=== PATIENT | male | born 1950 | race American Indian/Alaskan Native ===

== ENCOUNTER → 2018-01-19 13:24 | Outpatient (CLI) | payer MEDICARE, OTHER, SELFPAY ==
--- NOTE | 2018-01-19 | DI.RAD.S_ITS ---
PROCEDURE: XR CHEST 2V INDICATIONS: SOB, EDEMA TECHNIQUE: 2 views of the chest were acquired. COMPARISON: [facility], CR, XR CHEST 2 VIEWS, 09/02/2017, 6:46. FINDINGS: Surgical changes and devices: Dual lead cardiac pacemaker. Median sternotomy. Lungs and pleura: No pleural effusions or pneumothorax. Bibasilar atelectasis, unchanged. No focal infiltrates. Mediastinum: Mediastinal contours are normal. Heart size is normal. Bones and chest wall: No suspicious bony abnormalities. Soft tissues appear unremarkable. IMPRESSION: No acute cardiopulmonary abnormality. Mild bibasilar atelectasis. Postoperative changes. Dictated by: Suleman Thayer M.D. on 01/19/2018 at 14:39 Approved by: Suleman Thayer M.D. on 01/19/2018 at 14:41
[2018-01-19 15:16] LABS: B Type Natriuretic Peptide 70.8 (<100)
[2018-01-19 15:28] LABS: BUN Creatinine Ratio 13.3 (6-22); Blood Urea Nitrogen 16 mg/dL (9-20); Calcium 8.8 mg/dL (8.4-10.2); Carbon Dioxide 27 mmol/L (22-32); Chloride 104 mmol/L (98-107); Estimated Glomerular Filt Rate > 60.0 mL/min (>60); Glucose 88 mg/dL (80-110); HEMOLYSIS < 15 (0-50); Potassium 4.8 mmol/L (3.4-5.1); Sodium 142 mmol/L (137-145)
== END ==
PROVIDERS: Family Provider Family Medicine; PCP Family Medicine; Visit Provider Family Medicine
DX: R06.02 Shortness of breath (principal); J98.11 Atelectasis; R60.9 Edema, unspecified
CPT/HCPCS: 36415; 71046; 80048; 83880

== ENCOUNTER → 2018-04-17 09:58 | Outpatient (CLI) | payer MEDICARE, OTHER, SELFPAY ==
--- NOTE | 2018-04-17 | DI.RAD.S_ITS ---
PROCEDURE: XR HIP W PEL IF DONE RT 2V INDICATIONS: RIGHT HIP PAIN TECHNIQUE: AP pelvis with lateral view(s) of the right hip(s). COMPARISON: None. FINDINGS: Bones: No fractures or dislocations. Pelvic ring appears intact. No suspicious bony lesions. Lower lumbar discogenic changes. Mild/moderate intra-and degeneration. Mild left hip degeneration. Soft tissues: The visualized bowel gas pattern is normal. No suspicious soft tissue calcifications. IMPRESSION: Bilateral, right greater than left, hip joint degeneration. Dictated by: Antwan Garcia M.D. on 04/17/2018 at 15:45 Approved by: Antwan Garcia M.D. on 04/17/2018 at 15:47
== END ==
PROVIDERS: Family Provider Family Medicine; PCP Family Medicine; Visit Provider Physician Assistant
DX: M25.551 Pain in right hip (principal); M16.0 Bilateral primary osteoarthritis of hip
CPT/HCPCS: 73502

== ENCOUNTER → 2018-10-09 13:01 | Outpatient (REF) | payer MEDICARE, OTHER, SELFPAY ==
[2018-10-09 13:08] LABS: Hematocrit 48.5 % (41-53); Mean Corpuscular Hemoglobin 28.8 PG (26-34); Mean Corpuscular Volume 87.2 fL (80-100); Platelet Count 196 X10^3/uL (150-400); Red Blood Cell Count 5.56 X10^6/uL (4.5-5.9); Red Cell Distribution Width 15.8 % (11.6-14.8); White Blood Cell Count 8.5 X10^3/uL (4.5-11.0)
[2018-10-09 13:22] LABS: BUN Creatinine Ratio 11.5 (6-22); Blood Urea Nitrogen 15 mg/dL (9-20); Calcium 8.8 mg/dL (8.4-10.2); Carbon Dioxide 30 mmol/L (22-32); Chloride 102 mmol/L (98-107); Estimated Glomerular Filt Rate 54.6 mL/min (>60); Glucose 111 mg/dL (80-110); HEMOLYSIS < 15 (0-50); Potassium 4.8 mmol/L (3.4-5.1); Sodium 141 mmol/L (137-145)
[2018-10-09 13:31] LABS: B Type Natriuretic Peptide 144 (<100)
[2018-10-09 13:54] LABS: Thyroid Stimulating Hormone 1.98 uIU/mL (0.47-4.68)
== END ==
LOC: LAB 13:01
PROVIDERS: Family Provider Family Medicine; PCP Family Medicine; Visit Provider Family Medicine
DX: I10 Essential (primary) hypertension (principal); I48.91 Unspecified atrial fibrillation; Z86.79 Personal history of other diseases of the circulatory system
CPT/HCPCS: 80048; 83880; 84443; 85027

== ENCOUNTER → 2018-10-26 08:59 | Outpatient (CLI) | payer MEDICARE, OTHER, SELFPAY ==
--- NOTE | 2018-10-26 | DI.ECHO.S_ITS ---
[facility] +---------+ [facility] +---------+ : : [address] [place] : : : : [id number] : : : : Phone: [phone]+ Echocardiogram Report + + :Name: BYRON GREGG Study Date: 10/26/2018 Height: 70 in : :[facility] Exam Location: IS Weight: 324 lb : : Gender: Male BSA: 2.6 m2 : :: 1950 Age: 68 yrs BP: 108/80 mmHg: :Reason For Study: Edema/ SOB : :Ordering Physician: Gretchen : :Johny Performed By: Noemy Page : + + Interpretation Summary The study quality was technically difficult. A contrast injection of Definity was performed to improve assessment of LV function. The ejection fraction is estimated to be 60-65%. There are no obvious focal wall motion abnormalities noted but poor endocardial definition reduces the sensitivity for the detection of such. The aortic valve is not well visualized. There is a bioprosthetic aortic valve. The gradients through the prosthetic aortic valve are within the normal range for this type of valve. Previously reported chordal elongation is not appreciated on this study. Procedure: A two-dimensional transthoracic echocardiogram with color flow and Doppler was performed. The study quality was technically difficult. Comparison is made with the echocardiogram of 04/11/2017. A contrast injection of Definity was performed to improve assessment of LV function. The heart rate ranged between 59-64 bpm during the study. Left Ventricle: The left ventricle is grossly normal size. There is normal left ventricular wall thickness. The ejection fraction is estimated to be 60- 65%. There are no obvious focal wall motion abnormalities noted but poor endocardial definition reduces the sensitivity for the detection of such. Diastolic parameters suggest a relaxation abnormality of the left ventricle, consistent with probable normal filling pressures. Right Ventricle: The right ventricle is grossly normal size. Right ventricular systolic function is at the lower limits of normal. Atria: Both atria are severely dilated. There is no Doppler evidence for an interatrial shunt. Mitral Valve: The mitral valve is grossly normal. There is trace mitral regurgitation. Aortic Valve: The aortic valve is not well visualized. There is a bioprosthetic aortic valve. The gradients through the prosthetic aortic valve are within the normal range for this type of valve. The prosthetic aortic valve is well-seated. Tricuspid Valve: The tricuspid valve is not well visualized, but is grossly normal. There is trace tricuspid regurgitation. Pulmonary artery pressures cannot be estimated because of the lack of a measurable TR jet velocity. Pulmonic Valve: The pulmonic valve is not well visualized. There is mild pulmonic regurgitation. Great Vessels: The aortic root is normal size. The ascending aorta could not be visualized. The pulmonary is not well visualized. The inferior vena cava was not visualized. Pericardium/ Pleura There is no pericardial effusion. There is no pleural effusion. MMode/2D Measurements & Calculations LVIDd: 5.3 cm LVOT diam: 2.6 cm LVIDs: 4.4 cm Ao root diam: 3.8 cm FS: 17.1 % IVSd: 0.97 cm LVPWd: 0.85 cm LV allen. diameter/BSA (cm/m^2): 2.1 LV sys. diameter/BSA (cm/m^2): 1.7 LA A2 area: 35.8 cm2 RA long axis: 6.7 cm LA A4 area: 27.7 cm2 RA area: 32.1 cm2 LA length (vol): 6.5 cm RA vol: 130.5 ml LA vol: 129.5 ml RA : 50.9 ml/m2 LA vol index: 50.5 ml/m2 RVD1 (basal): 4.6 cm Doppler Measurements & Calculations Ao V2 max: 229.9 cm/sec LVOT Max Tuan: 86.3 cm/sec Ao V2 mean: 158.4 cm/sec LV V1 max P.0 mmHg Ao max P.1 mmHg LV V1 VTI: 18.2 cm Ao mean P.5 mmHg LEONARDO(I,D): 2.1 cm2 Ao V2 VTI: 46.5 cm LEONARDO(V,D): 2.0 cm2 sev ratio: 0.39 LEONARDO indexed to BSA (cm^2/m^2): 0.83 MV E max tuan: 58.0 cm/sec PA V2 max: 60.5 cm/sec MV A max tuan: 97.1 cm/sec PA V2 mean: 39.7 cm/sec MV E/A: 0.60 PA mean P.73 mmHg MV dec time: 0.28 sec PA Accel Time: 0.03 sec MV P1/2t: 84.3 msec MV P1/2t max tuan: 57.4 cm/sec SV(LVOT): 98.7 ml MVA(P1/2t): 2.6 cm2 Reading Physician:[id number]
== END ==
PROVIDERS: PCP Family Medicine; Visit Provider Family Medicine
DX: I37.1 Nonrheumatic pulmonary valve insufficiency (principal); R06.02 Shortness of breath; R60.9 Edema, unspecified; R06.01 Orthopnea; Z95.2 Presence of prosthetic heart valve
CPT/HCPCS: 93306; Q9957

== ENCOUNTER → 2019-07-08 11:58 | Outpatient (CLI) | payer MEDICARE, OTHER, SELFPAY ==
--- NOTE | 2019-07-08 | DI.CT.S_ITS ---
PROCEDURE: CT LUMBAR SPINE WO CON INDICATIONS: lumbar radiculopathy TECHNIQUE: Noncontrast 3 mm thick sections acquired from the T12 level to the sacrum. Sagittal and coronal reformats were constructed. Additional oblique coronal reformatted images were performed through the sacrum. For radiation dose reduction, the following was used: automated exposure control. COMPARISON: [facility], MR, L-SPINE WITHOUT CONTRAST, 10/24/2008, 19:44. [facility], CR, XR HIP W PEL IF DONE RT 2V, 04/17/2018, 10:29. [facility], CR, L-SPINE 2-3 VIEWS, 04/30/2016, 12:12. [facility], RG, MRI BRAIN (IAC) W/WO CONTRAST, 02/07/2006, 14:34. FINDINGS: Image quality: Excellent. Bones: No acute vertebral body compression fractures. No suspicious lytic or blastic bony lesions. Central spinal caliber is of normal overall caliber. No pars defects. Mild levoconvex scoliotic curvature is noted. Minimal retrolisthesis is seen at L4-L5 and L5-S1. T12-L1: No significant abnormality is seen. L1-L2: Level within normal limits. L2-L3: The disc height is well preserved. Mild to moderate disc bulge is seen. There is mild bilateral neural foraminal narrowing seen. At least mild central canal narrowing is seen. These imaging findings have progressed compared to the prior study. L3-L4: The disc height is well-preserved. At least moderate disc bulge is seen. There is at least moderate bilateral neural foraminal narrowing seen. Moderate central canal narrowing is seen. These imaging findings have progressed compared to the prior study. L4-L5: Moderate loss of disc height is seen. Vacuum disc phenomenon is seen at this level. Moderate disc bulge is seen, which is eccentric to the left. There is moderate to severe left-sided and at least moderate right-sided neural foraminal narrowing seen. Mild central canal narrowing is seen. These degenerative changes are slightly more prominent than 2009. L5-S1: At least moderate loss of disc height is seen. Endplate irregularity and sclerosis can be seen. Vacuum disc phenomenon is seen at this level. At least moderate disc bulge is seen. There is moderate to severe bilateral neural foraminal narrowing seen. No significant central canal narrowing is seen. These imaging findings have progressed compared to the prior study. Soft tissues: No retroperitoneal masses or hematomas. Visualized aorta is normal in caliber. Pacer leads can be seen on the engineer internship images. Sternotomy wires are also seen. IMPRESSION: Lumbar spine degenerative changes are seen, which are worst inferiorly. The degenerative changes have progressed compared to 2008. Dictated by: Galileo Salinas M.D. on 07/08/2019 at 14:08 Approved by: Galileo Salians M.D. on 07/08/2019 at 14:13
== END ==
PROVIDERS: PCP Family Medicine; Visit Provider Family Medicine
DX: M47.26 Other spondylosis with radiculopathy, lumbar region (principal); M47.27 Other spondylosis with radiculopathy, lumbosacral region; Z95.0 Presence of cardiac pacemaker
CPT/HCPCS: 72131

== ENCOUNTER → 2019-11-22 12:31 | Outpatient (CLI) | payer MEDICARE, OTHER, SELFPAY ==
--- NOTE | 2019-11-22 | DI.US.S_ITS ---
PROCEDURE: US PERIPH VENOUS LOW EXTREM RT INDICATIONS: RIGHT LOWER EXTREMITY EDEMA TECHNIQUE: Real-time imaging, as well as color and pulse Doppler interrogation, were performed of the lower extremity deep veins from the inguinal ligament to the popliteal fossa. COMPARISON: None. FINDINGS: The common femoral, femoral and popliteal veins are normally compressible, and free of intraluminal thrombus. Color and pulse Doppler demonstrate normal phasic intraluminal flow. There is normal augmentation response to distal compression maneuver. Diffuse calf edema IMPRESSION: No evidence of deep venous thrombosis. Dictated by: Antwan Garcia M.D. on 11/22/2019 at 13:22 Approved by: Antwan Garcia M.D. on 11/22/2019 at 13:23
== END ==
PROVIDERS: PCP Family Medicine; Referring Provider Physician Assistant; Visit Provider Physician Assistant
DX: R60.0 Localized edema (principal)
CPT/HCPCS: 93971

== ENCOUNTER 2020-02-14 23:15 | Inpatient (IN) | payer MEDICARE, OTHER, SELFPAY ==
[2020-02-14 23:22] VITALS: BP 87/51; PULSE 112; RESP 30; TEMP 39.6; O2SAT 98; BMI 41.5
--- NOTE | 2020-02-14 23:23 | DI.RAD.S_ITS ---
PROCEDURE: XR CHEST 1V INDICATIONS: flu-like symptoms TECHNIQUE: One view of the chest was acquired. COMPARISON: [facility], CR, XR CHEST 2 VIEWS, 09/02/2017, 6:46. [facility], CR, XR CHEST 2V, 01/19/2018, 13:06. FINDINGS: Surgical changes and devices: Left chest wall cardiac pacer is stable. Median sternotomy wires are stable.. Lungs and pleura: Increased opacification noted in the left lung base which could represent atelectasis, aspiration or pneumonia. No pleural effusions or pneumothorax. Mediastinum: Mediastinal contours appear normal. Heart size is normal. Bones and chest wall: No suspicious bony lesions. Overlying soft tissues appear unremarkable. IMPRESSION: Left basilar atelectasis, aspiration or pneumonia. Dictated by: Candy Bang MD, PhD on 02/15/2020 at 8:33 Approved by: Candy Bang MD, PhD on 02/15/2020 at 8:34
--- NOTE | 2020-02-14 23:29 | ED.SEPSIS ---
HPI - Sepsis General Chief Complaint: Fever Mode of arrival: EMS Source: EMS Limitations: altered mental status Evaluation Sepsis Infection Criteria Present: Suspected New Infection Sepsis persistent hypotension: SBP < 90 mmHg Associated Symptoms: fever, cough, shortness of breath and weakness Narrative: 69-year-old male former smoker with cardiac history including coronary bypass graft surgery and pacemaker as well as COPD, morbid obesity and hypertension presents by EMS for evaluation upwards of 10 days of fever, weakness, shortness of breath and cough. He has a very poor historian and much of the story comes from the paramedics through the patient's . He denies any headache, runny nose or sore throat. He denies any chest pain. He has had no change in bowel habits such as constipation or diarrhea and denies any dysuria, frequency or urgency. He has been very weak and not doing much for least the past few days per the . There has been no obvious exposure to persons known to have COVID-19. states he has been taking his medications and has had no dietary change other than decreased appetite the past few days Review of Systems Constitutional Constitutional: Denies chills, Denies fatigue, Reports fever(s), Denies frequent falls, Denies lethargy and Reports weakness Eyes Eyes: Denies change in vision, Denies eye discharge, Denies irritation and Denies loss of vision ENT Ears, Nose, Mouth, and Throat: Denies change in voice, Denies dizziness, Denies neck pain, Denies sore throat and Denies throat swelling Cardiovascular Cardiovascular: Denies chest pain, Denies irregular heart rhythm, Denies lightheadedness, Denies palpitations, Reports dyspnea, Denies dyspnea on exertion and Denies orthopnea Respiratory Respiratory: Reports cough, Reports dyspnea, Denies dyspnea on exertion and Denies wheezing Gastrointestinal Gastrointestinal: Denies abdominal pain, Denies change in bowel habits, Denies diarrhea, Denies nausea and Denies vomiting Musculoskeletal Musculoskeletal: Denies neck pain and Denies numbness Integumentary/Breasts Skin/Breast: Denies pruritus, Denies erythema, Denies rash and Denies wounds Neurologic Neurologic: Denies behavioral changes, Reports confusion, Denies dizziness, Denies frequent falls, Denies loss of vision, Denies numbness and Reports weakness Psychiatric Psychiatric: Denies anxiety, Denies behavioral changes, Reports confusion, Denies depression, Denies homicidal ideation and Denies suicidal ideation Endocrine Endocrine: Denies fatigue, Denies flushing and Denies palpitations Hematologic/Lymphatic Hematologic/Lymphatic: Denies easy bruising Allergic/Immunologic Allergic/Immunologic: Denies urticaria, Denies throat swelling and Denies wheezing Patient History Social History Smoking Status: Former smoker Smoking Status: Former smoker alcohol intake frequency: 0-2 drinks per day Substance Use Type: does not use Exam Narrative Exam Narrative: GENERAL: [69] year old patient appears stated age. Morbid obesity, awake but confused and slow to respond HEAD: Atraumatic. Normocephalic. EYES: Pupils equal round and reactive. Extraocular motions intact. No scleral icterus. No injection or drainage. ENT: Nose without bleeding, purulent drainage. Throat without erythema, tonsillar hypertrophy or exudate. Airway patent. NECK: Trachea midline. Non tender CARDIOVASCULAR: Tachycardic but regular rhythm without murmurs, gallops, or rubs. RESPIRATORY: Clear to auscultation. Breath sounds equal bilaterally. No wheezes, rales, or rhonchi. No significant work of breathing GASTROINTESTINAL: Abdomen soft, non-tender, nondistended. Bowel sounds present in all 4 quadrants EXTREMITIES: No edema or joint tenderness. BACK: Nontender without deformity or crepitance. No flank tenderness. NEURO: No focal findings SKIN: No rash or erythema of visible areas Initial Vital Signs Initial Vital Signs: Vital Signs Temperature 103.3 F H 02/14/20 23:22 Pulse Rate 112 H 02/14/20 23:22 Respiratory Rate 30 H 02/14/20 23:22 Blood Pressure 87/51 L 02/14/20 23:22 Pulse Oximetry 98 02/14/20 23:22 Course Orders Ordered: ED Orders 02/14/20 23:20 COVID19 -ED/INPAT/OR/L&D Stat 02/14/20 23:22 EKG-12 Lead Stat High flow/High humidity nasal STAT 02/14/20 23:23 XR chest 1V Stat 02/14/20 23:30 Blood Culture Stat C-Reactive Protein Quant Stat Complete Blood Count AUTO DIFF Stat Comprehensive Metabolic Panel Stat D Dimer Stat Ferritin Stat Lactate (Lactic Acid) Stat Lactate Dehydrogenase Stat NT-proBNP (BNP-Adult 18+) Stat Procalcitonin Stat Troponin & CK Cardiac Panel Stat 02/14/20 23:40 Arterial Blood Gas Stat 02/15/20 00:03 CT angio chest PE protocol Stat 02/15/20 00:09 CT abdomen pelvis w con Stat 02/15/20 00:40 COVID19 -ED/INPAT/OR/L&D Stat Respiratory Panel (Film Array) Stat 02/15/20 00:50 Urinalysis and Microscopic Stat Urine Drug Screen, Rapid Stat 02/15/20 02:04 Creatinine & eGFR Stat Troponin I Stat Discontinued Medications Albuterol (Ventolin Hfa (Vent/Covid R/O)) 2 puff INH NOW ONE Stop: 02/15/20 01:15 Last Admin: 02/15/20 01:25 Dose: 2 puff Documented by: FLORAALLAmada Albuterol/Ipratropium (Duoneb) 3 ml INH NOW ONE Stop: 02/15/20 02:13 Last Admin: 02/15/20 02:17 Dose: 3 ml Documented by: BERE Diphenhydramine HCl (Benadryl) 25 mg IV NOW ONE Stop: 02/15/20 00:47 Last Admin: 02/15/20 00:54 Dose: 25 mg Documented by: OLGA LIDIA Levofloxacin (Levaquin) 750 mg in 150 mls @ 100 mls/hr IV NOW ONE Stop: 02/15/20 00:51 Last Infusion: 02/15/20 00:52 Dose: 100 mls/hr Documented by: OLGA LIDIA Admin: 02/14/20 23:30 Dose: 100 mls/hr Documented by: ABIODUN Lactated Ringer's (Lactated Ringers) 2,250.03 mls @ 750.01 mls/hr 30 ml/kg infuse over 3 hr (2250.03 ml) IV NOW ONE Stop: 02/15/20 02:21 Last Admin: 02/14/20 23:30 Dose: 750.01 mls/hr Documented by: ABIODUN Famotidine (Pepcid) 20 mg in 50 mls @ 200 mls/hr IV NOW ONE Stop: 02/15/20 01:00 Last Infusion: 02/15/20 01:19 Dose: 0 mls/hr Documented by: Admin: 02/15/20 00:54 Dose: 200 mls/hr Documented by: OLGA LIDIA Gentamicin Sulfate 270 mg/ (Sodium Chloride) 106.75 mls @ 106.75 mls/hr IV NOW ONE Stop: 02/15/20 01:34 Azithromycin 500 mg/ Dextrose 250 mls @ 250 mls/hr IV NOW ONE Stop: 02/15/20 01:36 Last Admin: 02/15/20 02:06 Dose: 250 mls/hr Documented by: OLGA LIDIA Methylprednisolone (Solu-Medrol 125 Mg Vial) 125 mg IV NOW ONE Stop: 02/15/20 00:47 Last Admin: 02/15/20 00:54 Dose: 125 mg Documented by: OLGA LIDIA Reevaluation(s) Reevaluation #1: patient making urine now, mentation improved. HR down to 98. Patient developed some redness and itching in his left arm after about half the volume of Levaquin had been given. IV stopped and solumedrol, benadryl, and pepcid ordered Time: 00:56 Reevaluation #2: patient repositioned, continuing to improve. BP now 94/60. Albuterol MDI w/spacer ordered. Urine still pending. Back up COVID PCR pending. Allergic symptoms from levaquin improved Time: 01:18 Reevaluation #3: patient makes some more urine. BP steady. Second COVID negative. Urine negative. Given allergies to levaquin and PCNs, Gent and Azithro ordered. Vital Signs Vital signs: Vital Signs - 8 hr 02/14/20 23:22 02/14/20 23:31 02/14/20 23:46 Temperature 103.3 F H Pulse Rate 112 H 109 H 108 H Respiratory Rate 30 H 38 H 34 H Blood Pressure 87/51 L 83/47 L Pulse Oximetry 98 98 97 02/14/20 23:50 02/15/20 00:00 02/15/20 00:30 Temperature Pulse Rate 109 H 102 H 109 H Respiratory Rate 30 H Blood Pressure Pulse Oximetry 98 95 96 02/15/20 00:45 02/15/20 00:50 02/15/20 01:00 Temperature Pulse Rate 103 H 104 H 96 H Respiratory Rate 39 H 33 H 35 H Blood Pressure 85/53 L 72/46 L 77/49 L Pulse Oximetry 93 94 98 02/15/20 01:06 02/15/20 01:10 02/15/20 01:20 Temperature Pulse Rate 94 H 95 H 93 H Respiratory Rate 35 H 43 H 39 H Blood Pressure 87/52 L 94/60 93/53 L Pulse Oximetry 98 99 99 02/15/20 01:26 02/15/20 01:30 02/15/20 01:31 Temperature Pulse Rate 92 H 93 H 93 H Respiratory Rate 28 H 26 H 41 H Blood Pressure 79/42 L Pulse Oximetry 96 97 96 02/15/20 01:40 02/15/20 01:54 02/15/20 02:00 Temperature Pulse Rate 91 H 92 H 93 H Respiratory Rate 36 H 26 H Blood Pressure 74/42 L 91/50 L Pulse Oximetry 95 97 97 02/15/20 02:01 02/15/20 02:11 02/15/20 02:18 Temperature Pulse Rate 91 H 89 Respiratory Rate 31 H 35 H Blood Pressure 137/56 L 138/66 Pulse Oximetry 90 L 92 96 02/15/20 02:21 02/15/20 02:30 02/15/20 02:41 Temperature 99.7 F H Pulse Rate 87 86 86 Respiratory Rate 33 H 34 H 35 H Blood Pressure 88/55 L 88/54 L 78/52 L Pulse Oximetry 91 95 96 02/15/20 02:42 Temperature Pulse Rate 86 Respiratory Rate 35 H Blood Pressure 85/56 L Pulse Oximetry 95 MDM - Sepsis Lab Data Result diagrams: 02/14/20 23:30 02/15/20 02:04 Labs: Lab Results 02/14/20 02/14/20 02/14/20 Range/Units 23:20 23:30 23:30 WBC (4.5-11.0) X10^3/uL RBC (4.5-5.9) X10^6/uL Hgb (13.5-17.5) g/dL Hct (41-53) % MCV (80-100) fL MCH (26-34) PG MCHC (30-36) % RDW (11.6-14.8) % Plt Count (150-400) X10^3/uL Neut % (Auto) (50-75) % Lymph % (Auto) (25-40) % [place] % (Auto) (3-14) % Eos % (Auto) (2-4) % Baso % (Auto) (0-2) % Neut # (Auto) (5526-8319) /uL Lymph # (Auto) (1629-5486) /uL [place] # (Auto) (0-900) /uL Eos # (Auto) (0-450) /uL Baso # (Auto) (0-100) /uL D-Dimer > 5250 H (<230) ng/mL ABG pH (7.35-7.45) ABG pCO2 (35-45) mmHg ABG pO2 (80-100) mmHg ABG HCO3 (22-26) mmol/L ABG Total CO2 (21-31) mmol/L ABG O2 Saturation (95-100) % ABG Base Excess (-2-2) mmol/L FiO2 Sodium (137-145) mmol/L Potassium (3.4-5.1) mmol/L Chloride (98-107) mmol/L Carbon Dioxide (22-32) mmol/L BUN (9-20) mg/dL Creatinine (0.66-1.25) mg/dL Estimated GFR (>60) mL/min BUN/Creatinine Ratio (6-22) Glucose (80-110) mg/dL Lactate (0.7-2.1) mmol/L Calcium (8.4-10.2) mg/dL Ferritin (18-464) ng/mL Total Bilirubin (0.2-1.3) mg/dL AST (17-59) IU/L ALT (<50) IU/L Alkaline Phosphatase (38-126) U/L Lactate Dehydrogenase (313-618) U/L Total Creatine Kinase (55-170) U/L CK-MB (CK-2) (<2.37) ng/mL CK-MB (CK-2) Rel Index (1.5-5.0) % Troponin I (0.01-0.034) ng/mL C-Reactive Protein (<1.0) mg/dL NT-Pro-B Natriuret Pep (<125) pg/mL Total Protein (6.3-8.2) g/dL Albumin (3.5-5.0) g/dL Globulin (1.7-4.1) g/dL Albumin/Globulin Ratio (1.0-2.8) Procalcitonin 0.23 (<0.5) ng/mL Urine Color Urine Appearance Urine pH (4.5-8.0) Ur Specific [place] (1.000-1.035) Urine Protein (Negative) Urine Glucose (UA) (Negative) g/dL Urine Ketones (NEGATIVE) Urine Occult Blood (Negative) Urine Nitrate (Negative) Urine Bilirubin (NEGATIVE) Urine Urobilinogen (0.2) E.U./dL Ur Leukocyte Esterase (NEGATIVE) Urine RBC (0-5/HPF) Urine WBC (0-5/HPF) Ur Squamous Epith Cells (0-5/HPF) Amorphous Sediment Urine Bacteria (None) Hyaline Casts (None) Granular Casts (None) Ur Culture Indicated? U Opiates 300ng/mL cut (Negative) Ur Oxycodone Screen (Negative) Urine Methadone Screen (Negative) Ur Barbiturates Screen (Negative) U Tricyclic Antidepress (Negative) Ur Phencyclidine Scrn (Negative) Ur Amphetamines Screen (Negative) U Methamphetamines Scrn (Negative) Ur MDMA Scrn (Ecstasy) (Negative) U Benzodiazepines Scrn (Negative) Urine Cocaine Screen (Negative) U Marijuana (THC) Screen (Negative) Chlamy pneumoniae PCR (Not Detect) Adenovirus (PCR) (Not Detect) B.parapertussis DNA PCR (Not Detect) Coronavirus OC43 (PCR) (Not Detect) Coronavirus HKU1 (PCR) (Not Detect) Coronavirus 229E (PCR) (Not Detect) COVID-19 PCR Negative (Negative) Coronavirus NL63 (PCR) (Not Detect) Human Metapneumovir PCR (Not Detect) Influenza Type A (PCR) (Not Detect) Influenza Type B (PCR) (Not Detect) M. pneumoniae (PCR) (Not Detect) Parainfluenza 1 (PCR) (Not Detect) Parainfluenza 2 (PCR) (Not Detect) Parainfluenza 3 (PCR) (Not Detect) Parainfluenza 4 (PCR) (Not Detect) RSV (PCR) (Not Detect) Entero/Rhino (PCR) (Not Detect) 02/14/20 02/14/20 02/14/20 Range/Units 23:30 23:30 23:30 WBC 14.8 H (4.5-11.0) X10^3/uL RBC 4.26 L (4.5-5.9) X10^6/uL Hgb 11.8 L (13.5-17.5) g/dL Hct 35.3 L (41-53) % MCV 82.9 (80-100) fL MCH 27.7 (26-34) PG MCHC 33.5 (30-36) % RDW 16.2 H (11.6-14.8) % Plt Count 184 (150-400) X10^3/uL Neut % (Auto) 88.0 H (50-75) % Lymph % (Auto) 6.5 L (25-40) % [place] % (Auto) 4.5 (3-14) % Eos % (Auto) 0.4 L (2-4) % Baso % (Auto) 0.6 (0-2) % Neut # (Auto) 75849 H (7642-3211) /uL Lymph # (Auto) 1000 L (9600-0659) /uL [place] # (Auto) 700 (0-900) /uL Eos # (Auto) 100 (0-450) /uL Baso # (Auto) 100 (0-100) /uL D-Dimer (<230) ng/mL ABG pH (7.35-7.45) ABG pCO2 (35-45) mmHg ABG pO2 (80-100) mmHg ABG HCO3 (22-26) mmol/L ABG Total CO2 (21-31) mmol/L ABG O2 Saturation (95-100) % ABG Base Excess (-2-2) mmol/L FiO2 Sodium 135 L (137-145) mmol/L Potassium 4.9 (3.4-5.1) mmol/L Chloride 105 (98-107) mmol/L Carbon Dioxide 24 (22-32) mmol/L BUN 42 H (9-20) mg/dL Creatinine 2.20 H (0.66-1.25) mg/dL Estimated GFR 29.7 L (>60) mL/min BUN/Creatinine Ratio 19.1 (6-22) Glucose 171 H (80-110) mg/dL Lactate 1.8 (0.7-2.1) mmol/L Calcium 8.2 L (8.4-10.2) mg/dL Ferritin 388 (18-464) ng/mL Total Bilirubin 0.5 (0.2-1.3) mg/dL AST 54 (17-59) IU/L ALT 39 (<50) IU/L Alkaline Phosphatase 103 (38-126) U/L Lactate Dehydrogenase 976 H (313-618) U/L Total Creatine Kinase 107 (55-170) U/L CK-MB (CK-2) 0.65 (<2.37) ng/mL CK-MB (CK-2) Rel Index 0.6 L (1.5-5.0) % Troponin I 0.063 H (0.01-0.034) ng/mL C-Reactive Protein 22.2 H (<1.0) mg/dL NT-Pro-B Natriuret Pep 2890 H (<125) pg/mL Total Protein 7.6 (6.3-8.2) g/dL Albumin 3.1 L (3.5-5.0) g/dL Globulin 4.5 H (1.7-4.1) g/dL Albumin/Globulin Ratio 0.7 L (1.0-2.8) Procalcitonin (<0.5) ng/mL Urine Color Urine Appearance Urine pH (4.5-8.0) Ur Specific [place] (1.000-1.035) Urine Protein (Negative) Urine Glucose (UA) (Negative) g/dL Urine Ketones (NEGATIVE) Urine Occult Blood (Negative) Urine Nitrate (Negative) Urine Bilirubin (NEGATIVE) Urine Urobilinogen (0.2) E.U./dL Ur Leukocyte Esterase (NEGATIVE) Urine RBC (0-5/HPF) Urine WBC (0-5/HPF) Ur Squamous Epith Cells (0-5/HPF) Amorphous Sediment Urine Bacteria (None) Hyaline Casts (None) Granular Casts (None) Ur Culture Indicated? U Opiates 300ng/mL cut (Negative) Ur Oxycodone Screen (Negative) Urine Methadone Screen (Negative) Ur Barbiturates Screen (Negative) U Tricyclic Antidepress (Negative) Ur Phencyclidine Scrn (Negative) Ur Amphetamines Screen (Negative) U Methamphetamines Scrn (Negative) Ur MDMA Scrn (Ecstasy) (Negative) U Benzodiazepines Scrn (Negative) Urine Cocaine Screen (Negative) U Marijuana (THC) Screen (Negative) Chlamy pneumoniae PCR (Not Detect) Adenovirus (PCR) (Not Detect) B.parapertussis DNA PCR (Not Detect) Coronavirus OC43 (PCR) (Not Detect) Coronavirus HKU1 (PCR) (Not Detect) Coronavirus 229E (PCR) (Not Detect) COVID-19 PCR (Negative) Coronavirus NL63 (PCR) (Not Detect) Human Metapneumovir PCR (Not Detect) Influenza Type A (PCR) (Not Detect) Influenza Type B (PCR) (Not Detect) M. pneumoniae (PCR) (Not Detect) Parainfluenza 1 (PCR) (Not Detect) Parainfluenza 2 (PCR) (Not Detect) Parainfluenza 3 (PCR) (Not Detect) Parainfluenza 4 (PCR) (Not Detect) RSV (PCR) (Not Detect) Entero/Rhino (PCR) (Not Detect) 02/14/20 02/15/20 02/15/20 Range/Units 23:40 00:40 00:40 WBC (4.5-11.0) X10^3/uL RBC (4.5-5.9) X10^6/uL Hgb (13.5-17.5) g/dL Hct (41-53) % MCV (80-100) fL MCH (26-34) PG MCHC (30-36) % RDW (11.6-14.8) % Plt Count (150-400) X10^3/uL Neut % (Auto) (50-75) % Lymph % (Auto) (25-40) % [place] % (Auto) (3-14) % Eos % (Auto) (2-4) % Baso % (Auto) (0-2) % Neut # (Auto) (4564-1674) /uL Lymph # (Auto) (5476-4250) /uL [place] # (Auto) (0-900) /uL Eos # (Auto) (0-450) /uL Baso # (Auto) (0-100) /uL D-Dimer (<230) ng/mL ABG pH 7.46 H (7.35-7.45) ABG pCO2 34.2 L (35-45) mmHg ABG pO2 86 (80-100) mmHg ABG HCO3 24 (22-26) mmol/L ABG Total CO2 25 (21-31) mmol/L ABG O2 Saturation 97 (95-100) % ABG Base Excess 0.0 (-2-2) mmol/L FiO2 0.34 Sodium (137-145) mmol/L Potassium (3.4-5.1) mmol/L Chloride (98-107) mmol/L Carbon Dioxide (22-32) mmol/L BUN (9-20) mg/dL Creatinine (0.66-1.25) mg/dL Estimated GFR (>60) mL/min BUN/Creatinine Ratio (6-22) Glucose (80-110) mg/dL Lactate (0.7-2.1) mmol/L Calcium (8.4-10.2) mg/dL Ferritin (18-464) ng/mL Total Bilirubin (0.2-1.3) mg/dL AST (17-59) IU/L ALT (<50) IU/L Alkaline Phosphatase (38-126) U/L Lactate Dehydrogenase (313-618) U/L Total Creatine Kinase (55-170) U/L CK-MB (CK-2) (<2.37) ng/mL CK-MB (CK-2) Rel Index (1.5-5.0) % Troponin I (0.01-0.034) ng/mL C-Reactive Protein (<1.0) mg/dL NT-Pro-B Natriuret Pep (<125) pg/mL Total Protein (6.3-8.2) g/dL Albumin (3.5-5.0) g/dL Globulin (1.7-4.1) g/dL Albumin/Globulin Ratio (1.0-2.8) Procalcitonin (<0.5) ng/mL Urine Color Urine Appearance Urine pH (4.5-8.0) Ur Specific [place] (1.000-1.035) Urine Protein (Negative) Urine Glucose (UA) (Negative) g/dL Urine Ketones (NEGATIVE) Urine Occult Blood (Negative) Urine Nitrate (Negative) Urine Bilirubin (NEGATIVE) Urine Urobilinogen (0.2) E.U./dL Ur Leukocyte Esterase (NEGATIVE) Urine RBC (0-5/HPF) Urine WBC (0-5/HPF) Ur Squamous Epith Cells (0-5/HPF) Amorphous Sediment Urine Bacteria (None) Hyaline Casts (None) Granular Casts (None) Ur Culture Indicated? U Opiates 300ng/mL cut (Negative) Ur Oxycodone Screen (Negative) Urine Methadone Screen (Negative) Ur Barbiturates Screen (Negative) U Tricyclic Antidepress (Negative) Ur Phencyclidine Scrn (Negative) Ur Amphetamines Screen (Negative) U Methamphetamines Scrn (Negative) Ur MDMA Scrn (Ecstasy) (Negative) U Benzodiazepines Scrn (Negative) Urine Cocaine Screen (Negative) U Marijuana (THC) Screen (Negative) Chlamy pneumoniae PCR Not detected (Not Detect) Adenovirus (PCR) Not detected (Not Detect) B.parapertussis DNA PCR Not detected (Not Detect) Coronavirus OC43 (PCR) Not detected (Not Detect) Coronavirus HKU1 (PCR) Not detected (Not Detect) Coronavirus 229E (PCR) Not detected (Not Detect) COVID-19 PCR Negative (Negative) Coronavirus NL63 (PCR) Not detected (Not Detect) Human Metapneumovir PCR Not detected (Not Detect) Influenza Type A (PCR) Not detected (Not Detect) Influenza Type B (PCR) Not detected (Not Detect) M. pneumoniae (PCR) Not detected (Not Detect) Parainfluenza 1 (PCR) Not detected (Not Detect) Parainfluenza 2 (PCR) Not detected (Not Detect) Parainfluenza 3 (PCR) Not detected (Not Detect) Parainfluenza 4 (PCR) Not detected (Not Detect) RSV (PCR) Not detected (Not Detect) Entero/Rhino (PCR) Not detected (Not Detect) 02/15/20 02/15/20 02/15/20 Range/Units 00:50 00:50 02:04 WBC (4.5-11.0) X10^3/uL RBC (4.5-5.9) X10^6/uL Hgb (13.5-17.5) g/dL Hct (41-53) % MCV (80-100) fL MCH (26-34) PG MCHC (30-36) % RDW (11.6-14.8) % Plt Count (150-400) X10^3/uL Neut % (Auto) (50-75) % Lymph % (Auto) (25-40) % [place] % (Auto) (3-14) % Eos % (Auto) (2-4) % Baso % (Auto) (0-2) % Neut # (Auto) (9087-6528) /uL Lymph # (Auto) (4675-5274) /uL [place] # (Auto) (0-900) /uL Eos # (Auto) (0-450) /uL Baso # (Auto) (0-100) /uL D-Dimer (<230) ng/mL ABG pH (7.35-7.45) ABG pCO2 (35-45) mmHg ABG pO2 (80-100) mmHg ABG HCO3 (22-26) mmol/L ABG Total CO2 (21-31) mmol/L ABG O2 Saturation (95-100) % ABG Base Excess (-2-2) mmol/L FiO2 Sodium (137-145) mmol/L Potassium (3.4-5.1) mmol/L Chloride (98-107) mmol/L Carbon Dioxide (22-32) mmol/L BUN (9-20) mg/dL Creatinine 1.98 H (0.66-1.25) mg/dL Estimated GFR 33.5 L (>60) mL/min BUN/Creatinine Ratio (6-22) Glucose (80-110) mg/dL Lactate (0.7-2.1) mmol/L Calcium (8.4-10.2) mg/dL Ferritin (18-464) ng/mL Total Bilirubin (0.2-1.3) mg/dL AST (17-59) IU/L ALT (<50) IU/L Alkaline Phosphatase (38-126) U/L Lactate Dehydrogenase (313-618) U/L Total Creatine Kinase (55-170) U/L CK-MB (CK-2) (<2.37) ng/mL CK-MB (CK-2) Rel Index (1.5-5.0) % Troponin I 0.053 H (0.01-0.034) ng/mL C-Reactive Protein (<1.0) mg/dL NT-Pro-B Natriuret Pep (<125) pg/mL Total Protein (6.3-8.2) g/dL Albumin (3.5-5.0) g/dL Globulin (1.7-4.1) g/dL Albumin/Globulin Ratio (1.0-2.8) Procalcitonin (<0.5) ng/mL Urine Color Yellow Urine Appearance Clear Urine pH 5.0 (4.5-8.0) Ur Specific [place] 1.015 (1.000-1.035) Urine Protein 1+ H (Negative) Urine Glucose (UA) Negative (Negative) g/dL Urine Ketones Negative (NEGATIVE) Urine Occult Blood 1+ H (Negative) Urine Nitrate Negative (Negative) Urine Bilirubin Negative (NEGATIVE) Urine Urobilinogen 0.2 (0.2) E.U./dL Ur Leukocyte Esterase Negative (NEGATIVE) Urine RBC 1-5/hpf (0-5/HPF) Urine WBC 0-1/hpf (0-5/HPF) Ur Squamous Epith Cells 0-1 /hpf (0-5/HPF) Amorphous Sediment 1+ Urine Bacteria Occasional (0-1) (None) Hyaline Casts 5-10/lpf (None) Granular Casts 1-5/lpf (None) Ur Culture Indicated? Cult not indicated U Opiates 300ng/mL cut Positive H (Negative) Ur Oxycodone Screen Negative (Negative) Urine Methadone Screen Negative (Negative) Ur Barbiturates Screen Negative (Negative) U Tricyclic Antidepress Negative (Negative) Ur Phencyclidine Scrn Negative (Negative) Ur Amphetamines Screen Negative (Negative) U Methamphetamines Scrn Negative (Negative) Ur MDMA Scrn (Ecstasy) Negative (Negative) U Benzodiazepines Scrn Negative (Negative) Urine Cocaine Screen Negative (Negative) U Marijuana (THC) Screen Negative (Negative) Chlamy pneumoniae PCR (Not Detect) Adenovirus (PCR) (Not Detect) B.parapertussis DNA PCR (Not Detect) Coronavirus OC43 (PCR) (Not Detect) Coronavirus HKU1 (PCR) (Not Detect) Coronavirus 229E (PCR) (Not Detect) COVID-19 PCR (Negative) Coronavirus NL63 (PCR) (Not Detect) Human Metapneumovir PCR (Not Detect) Influenza Type A (PCR) (Not Detect) Influenza Type B (PCR) (Not Detect) M. pneumoniae (PCR) (Not Detect) Parainfluenza 1 (PCR) (Not Detect) Parainfluenza 2 (PCR) (Not Detect) Parainfluenza 3 (PCR) (Not Detect) Parainfluenza 4 (PCR) (Not Detect) RSV (PCR) (Not Detect) Entero/Rhino (PCR) (Not Detect) Discharge Plan Departure Patient Disposition: Admitted As Inpatient Clinical Impression: Sepsis associated hypotension, Acute kidney injury Referrals: Gretchen Mcclain MD [Primary Care Provider] - Admit Date/Time: 02/15/20 02:56 Admit Provider: Sandra Garcia
[2020-02-14] MEDS: LACTATED RINGERS 750.01 ML IV (23:30)
[2020-02-14] MEDS: levoFLOXacin 750 MG/150 ML PIGGYBACK 100 MG IV (23:30)
[2020-02-14 23:31] VITALS: PULSE 109; RESP 38; O2SAT 98
[2020-02-14 23:46] VITALS: BP 83/47; PULSE 108; RESP 34; O2SAT 97
[2020-02-14 23:50] VITALS: PULSE 109; RESP 30; O2SAT 98
[2020-02-14 23:51] LABS: Add Manual Diff / Slide Review NO; Basophils Absolute Auto 100 /uL (0-100); Basophils Percent Auto 0.6 % (0-2); Eosinophils Absolute Auto 100 /uL (0-450); Eosinophils Percent Auto 0.4 % (2-4); Hematocrit 35.3 % (41-53); Hemoglobin 11.8 g/dL (13.5-17.5); Lymphocytes Absolute Auto 1000 /uL (1100-4500); Lymphocytes Percent Auto 6.5 % (25-40); Mean Corpuscular HGB Conc 33.5 % (30-36); Mean Corpuscular Hemoglobin 27.7 PG (26-34); Mean Corpuscular Volume 82.9 fL (80-100); Monocytes Absolute Auto 700 /uL (0-900); Monocytes Percent Auto 4.5 % (3-14); Neutrophils Absolute Auto 13000 /uL (1500-7000); Platelet Count 184 X10^3/uL (150-400); Red Blood Cell Count 4.26 X10^6/uL (4.5-5.9); Red Cell Distribution Width 16.2 % (11.6-14.8); White Blood Cell Count 14.8 X10^3/uL (4.5-11.0)
[2020-02-14 23:55] LABS: HCO3 ABG 24 mmol/L (22-26); Oxygen Saturation ABG 97 % (95-100); PCO2 ABG 34.2 mmHg (35-45); PO2 ABG 86 mmHg (80-100); TCO2 ABG 25 mmol/L (21-31); pH ABG 7.46 (7.35-7.45)
[2020-02-14 23:56] LABS: Lactate (Lactic Acid) 1.8 mmol/L (0.7-2.1)
[2020-02-14 23:57] LABS: COVID19 -Nasal RAPID Negative (Negative)
[2020-02-14 23:57] LABS: Fractionated Inspired Oxygen 0.34
[2020-02-14 23:58] LABS: Alanine Aminotransferase 39 IU/L (<50); Albumin 3.1 g/dL (3.5-5.0); Albumin Globulin Ratio 0.7 (1.0-2.8); Alkaline Phosphatase 103 U/L (38-126); Aspartate Aminotransferase 54 IU/L (17-59); BUN Creatinine Ratio 19.1 (6-22); Bilirubin Total 0.5 mg/dL (0.2-1.3); Blood Urea Nitrogen 42 mg/dL (9-20); Calcium 8.2 mg/dL (8.4-10.2); Carbon Dioxide 24 mmol/L (22-32); Chloride 105 mmol/L (98-107); Creatine Kinase 107 U/L (55-170); Estimated Glomerular Filt Rate 29.7 mL/min (>60); Globulin 4.5 g/dL (1.7-4.1); Glucose 171 mg/dL (80-110); HEMOLYSIS < 15 (0-50); Lactate Dehydrogenase 976 U/L (313-618); Potassium 4.9 mmol/L (3.4-5.1); Sodium 135 mmol/L (137-145); Total Protein 7.6 g/dL (6.3-8.2)
[2020-02-15] VITALS (45 sets, daily range): BP systolic 72–138; BP diastolic 42–71; PULSE 64–109; RESP 6–80; TEMP 35–37.6; O2SAT 90–99; BMI 42.4
[2020-02-15 00:03] LABS: D Dimer > 5250 ng/mL (<230)
--- NOTE | 2020-02-15 00:03 | DI.CT.S_ITS ---
PROCEDURE: CT ANGIO CHEST PE PROTOCOL INDICATIONS: Shortnessof breath, hypoxic, tachycardia, tachypnea TECHNIQUE: After the administration of intravenous contrast, 2 mm thick sections acquired from the pulmonary apices to the posterior costophrenic angles. 3-dimensional maximum intensity projection (MIP) coronal and sagittal reformats were then acquired through the thorax. For radiation dose reduction, the following was used: automated exposure control, adjustment of mA and/or kV according to patient size. COMPARISON: None. FINDINGS: Image quality: Suboptimal due to patient difficulty with breath hold instructions. Pulmonary arteries: Pulmonary arteries are normal in size, and demonstrate no intraluminal filling defects to suggest central pulmonary embolism. Scattered subsegmental atelectasis and/or scarring. No focal consolidation. No pleural effusions or pneumothorax. Central and peripheral airways are patent. Mild cardiomegaly. No mediastinal or hilar adenopathy. Ascending thoracic aorta measures 4.4 cm in diameter. Esophagus is normal in caliber, without hiatal hernia. Bones and chest wall: No suspicious bony lesions. Ribs and thoracic spine appear intact throughout. Thyroid gland unremarkable . No axillary or supraclavicular adenopathy. Abdomen: Visualized upper abdominal solid organs appear normal in the early arterial phase of enhancement. IMPRESSION: No evidence of pulmonary embolism. No aortic dissection identified. Motion degraded examination. Findings concordant with the preliminary study interpretation provided at the time of the exam. Dictated by: Antwan Garcia M.D. on 02/15/2020 at 8:36 Approved by: Antwan Garcia M.D. on 02/15/2020 at 8:47
[2020-02-15 00:07] LABS: NT-proBNP (BNP-Adult 18+) 2890 pg/mL (<125); Troponin I 0.063 ng/mL (0.01-0.034)
[2020-02-15 00:09] LABS: C-Reactive Protein Quant 22.2 mg/dL (<1.0); Procalcitonin 0.23 ng/mL (<0.5)
--- NOTE | 2020-02-15 00:09 | DI.CT.S_ITS ---
PROCEDURE: CT ABDOMEN PELVIS W CON INDICATIONS: sepsis, fatigue, renal failure, hypoxic TECHNIQUE: After the administration of intravenous contrast, 5 mm thick sections acquired from the diaphragm to the symphysis. 5 mm coronal and sagittal reformats were acquired. For radiation dose reduction, the following was used: automated exposure control, adjustment of mA and/or kV according to patient size. COMPARISON: [facility], CT, CT ANGIO CHEST ABDOMEN PELVIS, 08/18/2019, 21:38. [facility], CT, CT ANGIO CHEST PE PROTOCOL, 02/15/2020, 0:09. FINDINGS: Image quality: Motion degraded examination. ABDOMEN: Scattered subsegmental atelectasis and/or scarring. No focal consolidation. Heart size is normal. Subcentimeter hepatic foci are statistically cysts or hemangiomas, although technically too small to characterize accurately and therefore nonspecific. Gallbladder contains tiny gallstones without other CT evidence of acute cholecystitis. . Biliary system is non dilated. Pancreas enhances normally. Peripheral hypodensity present in the posterior margin of the spleen measuring approximately 2-3 cm possibly acute infarct, for example image /. No adrenal nodules. Kidneys demonstrate normal size and enhancement, without hydronephrosis. Peritoneum and bowel: Bowel loops demonstrate normal wall thickness and caliber. No free fluid or air. Colonic diverticulosis is seen without evidence of acute complication. Nodes and vessels: No retroperitoneal or mesenteric adenopathy by size criteria. Aorta and inferior vena cava are normal in size. Miscellaneous: No ventral hernias. PELVIS: Genitourinary: Bladder wall thickness is normal. Miscellaneous: No inguinal hernias or adenopathy. Bones: No suspicious bony lesions. No vertebral body compression fractures. IMPRESSION: Indeterminate hypodense region in the posterior spleen possibly acute infarct. This could be further evaluated with follow-up ultrasound surveillance as clinically necessary. Elsewhere, no acute abnormality identified Findings concordant with the preliminary study interpretation provided at the time of the exam. Dictated by: Antwan Garcia M.D. on 02/15/2020 at 8:52 Approved by: Antwan Garcia M.D. on 02/15/2020 at 8:58
[2020-02-15 00:10] LABS: CKMB % Relative Index 0.6 % (1.5-5.0); Creatine Kinase MB 0.65 ng/mL (<2.37)
[2020-02-15 00:30] LABS: Ferritin 388 ng/mL (18-464)
[2020-02-15] MEDS: methylPREDNISolone 125 MG/2 ML VIAL IV (00:54)
[2020-02-15] MEDS: FAMOTIDINE 20 MG/50 ML PIGGYBACK 200 MG IV (00:54)
[2020-02-15] MEDS: diphenhydrAMINE 50 MG/ML VIAL 25 MG IV (00:54)
[2020-02-15 01:06] LABS: Appearance Urine UA CLEAR; Bilirubin Urine UA NEGATIVE (NEGATIVE); Color Urine UA YELLOW; Glucose Urine UA NEGATIVE (Negative); Ketones Urine UA NEGATIVE (NEGATIVE); Leukocyte Esterase Urine UA NEGATIVE (NEGATIVE); Nitrite Urine UA NEGATIVE (Negative); Occult Blood Urine UA 1+ (Negative); Protein Urine UA 1+ (Negative); Specific Gravity Urine UA 1.015 (1.000-1.035); Urobilinogen Urine UA 0.2 E.U./dL (0.2)
[2020-02-15 01:07] LABS: UR Morphine/Opiate cutoff 300 Positive (Negative); Ur Creatinine Normal (Normal); Ur Specific Gravity Normal (Normal); Urine Amphetamines Negative (Negative); Urine Barbiturates Negative (Negative); Urine Benzodiazepines Negative (Negative); Urine Cocaine Negative (Negative); Urine MDMA Negative (Negative); Urine Methadone Negative (Negative); Urine Methamphetamines Negative (Negative); Urine Oxycodone Negative (Negative); Urine Phencyclidine Negative (Negative); Urine Tetrahydrocannabinol Negative (Negative); Urine Tricyclic Antidepressant Negative (Negative); Urine pH Normal (Normal)
[2020-02-15 01:12] LABS: Amorphous Sediment Urine 1+; Bacteria Urine Occasional (0-1); Granular Casts Urine 1-5/LPF; Hyaline Casts Urine 5-10/LPF; RBC Urine 1-5/HPF (0-5/HPF); Squamous Epithelial Cell Urine 0-1 /HPF (0-5/HPF); WBC Urine 0-1/HPF (0-5/HPF)
[2020-02-15 01:13] LABS: Culture Indicated Urine Cult Not Indicated
[2020-02-15] MEDS: ALBUTEROL HFA 200 PUFF/18 GM INH (COVID POS/VENT PTS) INH (01:25)
--- NOTE | 2020-02-15 01:31 | PC.NURSE ---
Pt c/o burning to R forearm, proximal to IV site where levequin was infusing. Red blotches noted to forearm. Levaquin stopped, Dr Blancas notified, pt medicated per order with benedryl, solumederol, and famotidine.
[2020-02-15 01:47] LABS: COVID19 -Nasal RAPID Negative (Negative)
[2020-02-15] MEDS: AZITHROMYCIN 500 MG in DEXTROSE 5% IN WATER 250 ML IV (02:06)
[2020-02-15 02:10] LABS: Adenovirus Not Detected (Not Detect); Coronavirus 229E Not Detected (Not Detect); Coronavirus HKU1 Not Detected (Not Detect); Coronavirus NL 63 Not Detected (Not Detect); Coronavirus OC43 Not Detected (Not Detect); Human Metapneumovirus Not Detected (Not Detect)
[2020-02-15 02:11] LABS: Bordetella pertussis Not Detected (Not Detect); Chlamydophila pneumoniae Not Detected (Not Detect); Human Rhinovirus/Enterovirus Not Detected (Not Detect); Influenza A Not Detected (Not Detect); Influenza B Not Detected (Not Detect); Mycoplasma pneumoniae Not Detected (Not Detect); Parainfluenza Virus 1 Not Detected (Not Detect); Parainfluenza Virus 2 Not Detected (Not Detect); Parainfluenza Virus 3 Not Detected (Not Detect); Parainfluenza Virus 4 Not Detected (Not Detect); Respiratory Syncytial Virus Not Detected (Not Detect)
[2020-02-15] MEDS: ALBUTEROL/IPRATROPIUM 3 ML AMPUL INH (02:17)
[2020-02-15 02:27] LABS: Estimated Glomerular Filt Rate 33.5 mL/min (>60)
[2020-02-15 02:40] LABS: Troponin I 0.053 ng/mL (0.01-0.034)
[2020-02-15] MEDS: GENTAMICIN 270 MG in SODIUM CHLORIDE 0.9% 100 ML 106.75 ML IV (03:09)
--- NOTE | 2020-02-15 03:51 | DI.US.S_ITS ---
PROCEDURE: US RENAL COMPLETE INDICATIONS: TEENA OF UNKNOWN ETIOLOGY TECHNIQUE: Real-time scanning was performed of the kidneys and bladder, with image documentation. COMPARISON: [facility], CT, CT ABDOMEN PELVIS W CON, 02/15/2020, 0:09. FINDINGS: Kidneys: Kidneys are normal in size. Right kidney measures 11.5 cm long; left kidney measures 13.8 cm long. Right renal cortical thickness is 1.8 cm; left renal cortical thickness is 1.6 cm. Renal cortical echotexture is normal. No hydronephrosis or nephrolithiasis. No suspicious solid mass lesions. Bladder: Bladder is collapsed with a Ewldon catheter limiting evaluation. Ureteral jets are not visualized. Miscellaneous: No free pelvic fluid. IMPRESSION: No obstruction. No focal masses. Dictated by: Misti Michelle M.D. on 02/15/2020 at 9:39 Approved by: Misti Michelle M.D. on 02/15/2020 at 9:45
[2020-02-15 03:54] LABS: INR 2.8 (0.9-1.3); Prothrombin Time 31.4 SECONDS (10.1-12.7)
--- NOTE | 2020-02-15 03:55 | PM.HP.1 ---
History of Present Illness History of Present Illness Date Patient Seen: 02/15/20 Time Patient Seen: 03:00 Chief complaint: Fever/ shortness of breath/ low BP Narrative: Vipin Lockhart is a 69-year-old [place] male former smoker with acardiac history including arotic valve replacement X 2 surgery, pacemaker as well as COPD, morbid obesity and hypertension presents to the ED with an upwards of 10 days of fever, weakness, shortness of breath and cough. Per his , in the room stated he was not eating and was sleeping all the time. He is more awake now and stated he his bones hurt. He told the ED provider that he had not been urinating at all and his said he was disoriented. He denies any headache, runny nose or sore throat. He denies any chest pain. He has had no change in bowel habits such as constipation or diarrhea and denies any dysuria, frequency or urgency. He has been very weak and not doing much for least the past few days per the . states he has been taking his medications and has had no dietary change other than decreased appetite the past few days. Two weeks ago, they went to a family birthday event in [place] and the states they all wore masks and no one she was aware of, had COVID-19. 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 He states he takes warfarin, but skipped his dose last night. Neither his or he of them knows his dose. Per the external meds in this chart, he takes warfarin 6 mg daily. This was confirmed with the and patient later in my visit. The patient arrived in the ED with severe hypotension, barely speaking, febrile at 103 with an elevated respiratory rate. He was put on O2 nasal cannula, and given a total of 3 liters of LR boluses. Chest CTA was negative for a PE, with a finding of a dilated ascending aorta of 4.[address] of the abdomen pelvis negative for bowel obstruction or diverticulitis, but reported on an indeterminant hypodense area in the spleen could represent an acute infarct. EKG was abnormal indicating an atrial first degree block, though patient is paced. A multitude of his labs were grossly abnormal with a white count of 14.8 with a left shift and lymphopenia, anemic at 11.8/35.3, his INR is therapeutic at 2.8, he has an TEENA with an intial creatinine of 2.2 which improved to 1.98 (last normal in 2018) with fluid boluses and a GFR of 33.5, glucose of 171, lactate 1.8, calcium 8.2, normal ferritin at 388, LDH elevated at 976m, elevated troponin of 0.063 improved to 0.053 likely due to demand ischemia associated with the TEENA, a proBNP of 2890, albumin low at 3.1, probably reflecting his poor nutritional status. U/A was negative for a UTI, he was tested twice for COVID-19 and both results were negative. Patient History Medical History (Updated 02/15/20 @ 05:06 by FLORENCIO Lundberg) Anticoagulated on warfarin (Chronic) CAD (coronary artery disease) (Chronic) Diabetes type 2, uncontrolled (Acute) Essential hypertension (Chronic) Morbid obesity with BMI of 40.0-44.9, adult (Chronic) Surgical History Aortic valve replaced (Acute) History of knee replacement (Acute) Status cardiac pacemaker (Chronic) Family & Social History Family History Mother Breast cancer Parkinson disease Father Colon cancer Safety & Behavioral: Feels Safe in Current Yes Environment Tobacco & Substance use: Smoking Status Former smoker, quit 20 years ago alcohol intake frequency Former, quit 20 years ago Substance Use Type does not use Meds Home Medications and Allergies Home Medications Medication Instructions Recorded Confirmed Type ALBUTEROL SULFATE (Ventolin / 2 puff INH Q4HP #0 02/04/10 History Proventil) Diltiazem Hydrochloride (Diltiazem 180 mg PO Q DAY #0 02/04/10 History 24HR Cd) Diphenhydramine Hydrochloride 25 mg PO Q DAY #0 02/04/10 History (Benadryl) LISINOPRIL (Zestril / Prinivil) 20 mg PO Q DAY #0 02/04/10 History MULTIVITAMIN (Multivitamin 1 cap PO Q DAY #0 02/04/10 History -) [FiSH OIL] 1,000 mg Q DAY #0 02/04/10 History [PROVENTIL] 90 mcg INH BID #0 02/04/10 History Allergies Allergy/AdvReac Type Severity Reaction Status Date / Time levofloxacin [From Levaquin] Allergy Intermediate Hives Verified 02/15/20 01:30 penicillin G [PENICILLIN G] AdvReac Unknown HIVES Unverified 09/17/17 12:56 BEE VENOM Allergy Severe SEVERE Uncoded 09/17/17 12:56 SWELLING, HAS EPI PEN ALWAYS ON PERSON Review of Systems Review of Systems ROS: Yes All systems reviewed with the patient and are negative except as otherwise documented Exam Vital Signs (past 8 hours): - 02/14/20 23:22 02/14/20 23:31 02/14/20 23:46 Temperature 103.3 F H Pulse Rate 112 H 109 H 108 H Respiratory Rate 30 H 38 H 34 H Blood Pressure 87/51 L 83/47 L Pulse Oximetry 98 98 97 02/14/20 23:50 02/15/20 00:00 02/15/20 00:30 Temperature Pulse Rate 109 H 102 H 109 H Respiratory Rate 30 H Blood Pressure Pulse Oximetry 98 95 96 02/15/20 00:45 02/15/20 00:50 02/15/20 01:00 Temperature Pulse Rate 103 H 104 H 96 H Respiratory Rate 39 H 33 H 35 H Blood Pressure 85/53 L 72/46 L 77/49 L Pulse Oximetry 93 94 98 02/15/20 01:06 02/15/20 01:10 02/15/20 01:20 Temperature Pulse Rate 94 H 95 H 93 H Respiratory Rate 35 H 43 H 39 H Blood Pressure 87/52 L 94/60 93/53 L Pulse Oximetry 98 99 99 02/15/20 01:26 02/15/20 01:30 02/15/20 01:31 Temperature Pulse Rate 92 H 93 H 93 H Respiratory Rate 28 H 26 H 41 H Blood Pressure 79/42 L Pulse Oximetry 96 97 96 02/15/20 01:40 02/15/20 01:54 02/15/20 02:00 Temperature Pulse Rate 91 H 92 H 93 H Respiratory Rate 36 H 26 H Blood Pressure 74/42 L 91/50 L Pulse Oximetry 95 97 97 02/15/20 02:01 02/15/20 02:11 02/15/20 02:18 Temperature Pulse Rate 91 H 89 Respiratory Rate 31 H 35 H Blood Pressure 137/56 L 138/66 Pulse Oximetry 90 L 92 96 02/15/20 02:21 02/15/20 02:30 02/15/20 02:41 Temperature 99.7 F H Pulse Rate 87 86 86 Respiratory Rate 33 H 34 H 35 H Blood Pressure 88/55 L 88/54 L 78/52 L Pulse Oximetry 91 95 96 02/15/20 02:42 02/15/20 02:50 02/15/20 03:00 Temperature Pulse Rate 86 87 84 Respiratory Rate 35 H 34 H Blood Pressure 85/56 L 95/60 Pulse Oximetry 95 95 93 02/15/20 03:11 02/15/20 03:19 02/15/20 03:20 Temperature Pulse Rate 84 83 83 Respiratory Rate 32 H 36 H Blood Pressure 81/52 L Pulse Oximetry 94 95 95 02/15/20 03:23 02/15/20 03:30 02/15/20 03:41 Temperature Pulse Rate 85 81 81 Respiratory Rate 6 L Blood Pressure 102/65 92/60 86/62 L Pulse Oximetry 96 94 94 02/15/20 03:50 Temperature Pulse Rate 79 Respiratory Rate Blood Pressure 84/62 L Pulse Oximetry 94 Oxygen Delivery Method Nasal Cannula Oxygen Flow Rate 2 Narrative Exam Narrative: Alert, oriented, morbidly obese 69 y.o. [place] male, lethargic and mildly short of breath HEENT: normocephalic, atraumatic, conjunctiva clear, sclera non-icteric, oral mucosa pink and moist Neck: supple, full ROM, no JVD, trachea is midline Resp: Lungs CTA, mildly tachypneac CV: tachy, no murmur or rubs Abd: obese, non-tender, hypoactive BTs Skin: no lesions or rashes, dry and intact, some bruising on his legs bilaterally, no edema Neuro: Lethargic, but alert and oriented X 4 w/no focal deficits. Speech clear and coherent. Extremities: moves all 4 extremities, normally is ambulatory and apparently moved well when transferring to a medical bed, negative Giancarlo?s sign Psyche: normal mood and affect. Objective Labs Result Diagrams: 02/14/20 23:30 02/15/20 02:04 Labs: Laboratory Results - last 24 hr 02/14/20 02/14/20 02/14/20 23:20 23:30 23:30 WBC RBC Hgb Hct MCV MCH MCHC RDW Plt Count Neut % (Auto) Lymph % (Auto) [place] % (Auto) Eos % (Auto) Baso % (Auto) Neut # (Auto) Lymph # (Auto) [place] # (Auto) Eos # (Auto) Baso # (Auto) D-Dimer > 5250 H ABG pH ABG pCO2 ABG pO2 ABG HCO3 ABG Total CO2 ABG O2 Saturation ABG Base Excess FiO2 Sodium Potassium Chloride Carbon Dioxide BUN Creatinine Estimated GFR BUN/Creatinine Ratio Glucose Lactate Calcium Ferritin Total Bilirubin AST ALT Alkaline Phosphatase Lactate Dehydrogenase Total Creatine Kinase CK-MB (CK-2) CK-MB (CK-2) Rel Index Troponin I C-Reactive Protein NT-Pro-B Natriuret Pep Total Protein Albumin Globulin Albumin/Globulin Ratio Procalcitonin 0.23 Urine Color Urine Appearance Urine pH Ur Specific [place] Urine Protein Urine Glucose (UA) Urine Ketones Urine Occult Blood Urine Nitrate Urine Bilirubin Urine Urobilinogen Ur Leukocyte Esterase Urine RBC Urine WBC Ur Squamous Epith Cells Amorphous Sediment Urine Bacteria Hyaline Casts Granular Casts Ur Culture Indicated? U Opiates 300ng/mL cut Ur Oxycodone Screen Urine Methadone Screen Ur Barbiturates Screen U Tricyclic Antidepress Ur Phencyclidine Scrn Ur Amphetamines Screen U Methamphetamines Scrn Ur MDMA Scrn (Ecstasy) U Benzodiazepines Scrn Urine Cocaine Screen U Marijuana (THC) Screen Chlamy pneumoniae PCR Adenovirus (PCR) B.parapertussis DNA PCR Coronavirus OC43 (PCR) Coronavirus HKU1 (PCR) Coronavirus 229E (PCR) COVID-19 PCR Negative Coronavirus NL63 (PCR) Human Metapneumovir PCR Influenza Type A (PCR) Influenza Type B (PCR) M. pneumoniae (PCR) Parainfluenza 1 (PCR) Parainfluenza 2 (PCR) Parainfluenza 3 (PCR) Parainfluenza 4 (PCR) RSV (PCR) Entero/Rhino (PCR) 02/14/20 02/14/20 02/14/20 23:30 23:30 23:30 WBC 14.8 H RBC 4.26 L Hgb 11.8 L Hct 35.3 L MCV 82.9 MCH 27.7 MCHC 33.5 RDW 16.2 H Plt Count 184 Neut % (Auto) 88.0 H Lymph % (Auto) 6.5 L [place] % (Auto) 4.5 Eos % (Auto) 0.4 L Baso % (Auto) 0.6 Neut # (Auto) 36300 H Lymph # (Auto) [address] [place] # (Auto) 700 Eos # (Auto) 100 Baso # (Auto) 100 D-Dimer ABG pH ABG pCO2 ABG pO2 ABG HCO3 ABG Total CO2 ABG O2 Saturation ABG Base Excess FiO2 Sodium 135 L Potassium 4.9 Chloride 105 Carbon Dioxide 24 BUN 42 H Creatinine 2.20 H Estimated GFR 29.7 L BUN/Creatinine Ratio 19.1 Glucose 171 H Lactate 1.8 Calcium 8.2 L Ferritin 388 Total Bilirubin 0.5 AST 54 ALT 39 Alkaline Phosphatase 103 Lactate Dehydrogenase 976 H Total Creatine Kinase 107 CK-MB (CK-2) 0.65 CK-MB (CK-2) Rel Index 0.6 L Troponin I 0.063 H C-Reactive Protein 22.2 H NT-Pro-B Natriuret Pep 2890 H Total Protein 7.6 Albumin 3.1 L Globulin 4.5 H Albumin/Globulin Ratio 0.7 L Procalcitonin Urine Color Urine Appearance Urine pH Ur Specific [place] Urine Protein Urine Glucose (UA) Urine Ketones Urine Occult Blood Urine Nitrate Urine Bilirubin Urine Urobilinogen Ur Leukocyte Esterase Urine RBC Urine WBC Ur Squamous Epith Cells Amorphous Sediment Urine Bacteria Hyaline Casts Granular Casts Ur Culture Indicated? U Opiates 300ng/mL cut Ur Oxycodone Screen Urine Methadone Screen Ur Barbiturates Screen U Tricyclic Antidepress Ur Phencyclidine Scrn Ur Amphetamines Screen U Methamphetamines Scrn Ur MDMA Scrn (Ecstasy) U Benzodiazepines Scrn Urine Cocaine Screen U Marijuana (THC) Screen Chlamy pneumoniae PCR Adenovirus (PCR) B.parapertussis DNA PCR Coronavirus OC43 (PCR) Coronavirus HKU1 (PCR) Coronavirus 229E (PCR) COVID-19 PCR Coronavirus NL63 (PCR) Human Metapneumovir PCR Influenza Type A (PCR) Influenza Type B (PCR) M. pneumoniae (PCR) Parainfluenza 1 (PCR) Parainfluenza 2 (PCR) Parainfluenza 3 (PCR) Parainfluenza 4 (PCR) RSV (PCR) Entero/Rhino (PCR) 02/14/20 02/15/20 02/15/20 23:40 00:40 00:40 WBC RBC Hgb Hct MCV MCH MCHC RDW Plt Count Neut % (Auto) Lymph % (Auto) [place] % (Auto) Eos % (Auto) Baso % (Auto) Neut # (Auto) Lymph # (Auto) [place] # (Auto) Eos # (Auto) Baso # (Auto) D-Dimer ABG pH 7.46 H ABG pCO2 34.2 L ABG pO2 86 ABG HCO3 24 ABG Total CO2 25 ABG O2 Saturation 97 ABG Base Excess 0.0 FiO2 0.34 Sodium Potassium Chloride Carbon Dioxide BUN Creatinine Estimated GFR BUN/Creatinine Ratio Glucose Lactate Calcium Ferritin Total Bilirubin AST ALT Alkaline Phosphatase Lactate Dehydrogenase Total Creatine Kinase CK-MB (CK-2) CK-MB (CK-2) Rel Index Troponin I C-Reactive Protein NT-Pro-B Natriuret Pep Total Protein Albumin Globulin Albumin/Globulin Ratio Procalcitonin Urine Color Urine Appearance Urine pH Ur Specific [place] Urine Protein Urine Glucose (UA) Urine Ketones Urine Occult Blood Urine Nitrate Urine Bilirubin Urine Urobilinogen Ur Leukocyte Esterase Urine RBC Urine WBC Ur Squamous Epith Cells Amorphous Sediment Urine Bacteria Hyaline Casts Granular Casts Ur Culture Indicated? U Opiates 300ng/mL cut Ur Oxycodone Screen Urine Methadone Screen Ur Barbiturates Screen U Tricyclic Antidepress Ur Phencyclidine Scrn Ur Amphetamines Screen U Methamphetamines Scrn Ur MDMA Scrn (Ecstasy) U Benzodiazepines Scrn Urine Cocaine Screen U Marijuana (THC) Screen Chlamy pneumoniae PCR Not detected Adenovirus (PCR) Not detected B.parapertussis DNA PCR Not detected Coronavirus OC43 (PCR) Not detected Coronavirus HKU1 (PCR) Not detected Coronavirus 229E (PCR) Not detected COVID-19 PCR Negative Coronavirus NL63 (PCR) Not detected Human Metapneumovir PCR Not detected Influenza Type A (PCR) Not detected Influenza Type B (PCR) Not detected M. pneumoniae (PCR) Not detected Parainfluenza 1 (PCR) Not detected Parainfluenza 2 (PCR) Not detected Parainfluenza 3 (PCR) Not detected Parainfluenza 4 (PCR) Not detected RSV (PCR) Not detected Entero/Rhino (PCR) Not detected 02/15/20 02/15/20 02/15/20 00:50 00:50 02:04 WBC RBC Hgb Hct MCV MCH MCHC RDW Plt Count Neut % (Auto) Lymph % (Auto) [place] % (Auto) Eos % (Auto) Baso % (Auto) Neut # (Auto) Lymph # (Auto) [place] # (Auto) Eos # (Auto) Baso # (Auto) D-Dimer ABG pH ABG pCO2 ABG pO2 ABG HCO3 ABG Total CO2 ABG O2 Saturation ABG Base Excess FiO2 Sodium Potassium Chloride Carbon Dioxide BUN Creatinine 1.98 H Estimated GFR 33.5 L BUN/Creatinine Ratio Glucose Lactate Calcium Ferritin Total Bilirubin AST ALT Alkaline Phosphatase Lactate Dehydrogenase Total Creatine Kinase CK-MB (CK-2) CK-MB (CK-2) Rel Index Troponin I 0.053 H C-Reactive Protein NT-Pro-B Natriuret Pep Total Protein Albumin Globulin Albumin/Globulin Ratio Procalcitonin Urine Color Yellow Urine Appearance Clear Urine pH 5.0 Ur Specific [place] 1.015 Urine Protein 1+ H Urine Glucose (UA) Negative Urine Ketones Negative Urine Occult Blood 1+ H Urine Nitrate Negative Urine Bilirubin Negative Urine Urobilinogen 0.2 Ur Leukocyte Esterase Negative Urine RBC 1-5/hpf Urine WBC 0-1/hpf Ur Squamous Epith Cells 0-1 /hpf Amorphous Sediment 1+ Urine Bacteria Occasional (0-1) Hyaline Casts 5-10/lpf Granular Casts 1-5/lpf Ur Culture Indicated? Cult not indicated U Opiates 300ng/mL cut Positive H Ur Oxycodone Screen Negative Urine Methadone Screen Negative Ur Barbiturates Screen Negative U Tricyclic Antidepress Negative Ur Phencyclidine Scrn Negative Ur Amphetamines Screen Negative U Methamphetamines Scrn Negative Ur MDMA Scrn (Ecstasy) Negative U Benzodiazepines Scrn Negative Urine Cocaine Screen Negative U Marijuana (THC) Screen Negative Chlamy pneumoniae PCR Adenovirus (PCR) B.parapertussis DNA PCR Coronavirus OC43 (PCR) Coronavirus HKU1 (PCR) Coronavirus 229E (PCR) COVID-19 PCR Coronavirus NL63 (PCR) Human Metapneumovir PCR Influenza Type A (PCR) Influenza Type B (PCR) M. pneumoniae (PCR) Parainfluenza 1 (PCR) Parainfluenza 2 (PCR) Parainfluenza 3 (PCR) Parainfluenza 4 (PCR) RSV (PCR) Entero/Rhino (PCR) Assessment & Plan Assessment & Plan narrative: Vipin Lockhart will be admitted to the ICU for further workup of an acute kidney injury and sepsis. Sepsis of unknown origin, acute and present on admission -Patient on presentation to the ED was obtunded, febrile at 103, hypotensive, and tachycardic and has since improved prior to being transferred to the floor -Lactate was negative but will order a second one at 0700. -end organ damage of elevated troponin and pro-BNP in the setting of an acute kidney injury -He was fluid resuscitated with 3L lactated ringers and will continue with NS at 175 per hour -ED placed a koch and he put out what appeared to be 500 ml out after fluid resuscitation. Elevated troponin, likely in the setting of demand ischemia/type 2 GA -This has been trending down, but will repeat at 0700 -Patient normally takes lasix 40 mg, but will hold due to hypotension and need for emergent fluids Probably CHF exacerbation, likely acute, present on admission -proBNP of 2890 -Echocardiogram ordered -Diuresis not advised at this time due to his soft blood pressures Fever of unknown origin, acute and present on admission -Due to penicillin allergies he was administered IV gentimicin and IV azithromycin in the ED. They later found he had previously tolerated keflex, so he will be initiated on iv ceftriaxone 2 grams daily starting 02/15 and continue azithromycin -blood cultures are pending -repeat procalcitonin at 0700 -I have ordered COVID-19 antibodies igM and IgG Diabetes type 2, previosly diet controlled, now an A1c of 7.5, present on admission -presenting glucose was 171 -Patient was previously on anti-diabetic medications and diet, stated that he was okay -He is advised that he will be on insulin while he is here with a diabetic diet and we will do diabetic teaching Essential hypertension, currently hypotensive -Patient normally takes lisinopril 10 mg daily, will be held due to hypotension and impaired renal function -Patient normally takes metoprolol tartrate 75 mg po bid, will hold due to hypotension Hyperlipidemia, chronic -Patient normally takes rosuvastatin 20 mg po at bedtime and will resume after confirmed -Lipid panel ordered for 0700 Benign prostatic hypertrophy, chronic -Takes Tamsulosin 0.4 mg po at bedtime, will resume when confirmed VTE prophylaxis: Caprini risk score: 7, high risk Bilateral SCDs Heparin 5000 units bid ordered due to renal impairment Consults: none Requesing medical records from 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 FEN: IV NS at 175 ml/hour, carb controlled diet, CMP and magnesium in the am. Dispo: unknown at this time Code Status: Full code as discussed with patient and his , surrogate COVID-19 COVID-19 status: Negative Result date/Date tested (Pos, Neg/Pending): 02/15/20 (Tested twice today)
[2020-02-15 04:41] LABS: Hemoglobin A1C% w Est Avg Glu 7.5 % (4.0-6.0)
[2020-02-15] MEDS: CEFTRIAXONE 2 GM/50 ML FROZ.PIGGY IV (05:07)
[2020-02-15] MEDS: SODIUM CHLORIDE 0.9% 1,000 ML 175 ML IV ×3 (05:07→17:36)
--- NOTE | 2020-02-15 06:32 | PC.NURSE ---
Admit Note-Patient brought to Room 226 via stretcher, able to move over to bed with minimal assist, mild shortness of breath with exertions, RR 30s, SpO2 97% on 3L NC, LS CTA, diminished posterior. HR V-paced 80s, initial BP 120/61, then trends downward into 90s/50s MAP >60. Patient is oriented x3, can answer questions with assist from his at bedside. NS @ 175ml/hr, Rocephin started. Weldon patent with large clear UOP, see I/Os, vital trends, and assessment notes.
[2020-02-15 07:45] LABS: Add Manual Diff / Slide Review NO; Basophils Absolute Auto 0 /uL (0-100); Basophils Percent Auto 0.2 % (0-2); Eosinophils Absolute Auto 0 /uL (0-450); Hematocrit 34.5 % (41-53); Hemoglobin 11.3 g/dL (13.5-17.5); Lymphocytes Absolute Auto 600 /uL (1100-4500); Lymphocytes Percent Auto 4.8 % (25-40); Mean Corpuscular HGB Conc 32.8 % (30-36); Mean Corpuscular Hemoglobin 27.3 PG (26-34); Mean Corpuscular Volume 83.4 fL (80-100); Monocytes Absolute Auto 200 /uL (0-900); Monocytes Percent Auto 1.8 % (3-14); Neutrophils Absolute Auto 11500 /uL (1500-7000); Neutrophils Percent Auto 93.2 % (50-75); Platelet Count 164 X10^3/uL (150-400); Red Blood Cell Count 4.13 X10^6/uL (4.5-5.9); Red Cell Distribution Width 16.2 % (11.6-14.8); White Blood Cell Count 12.4 X10^3/uL (4.5-11.0)
[2020-02-15 07:46] LABS: INR 3.4 (0.9-1.3); Prothrombin Time 39.1 SECONDS (10.1-12.7)
[2020-02-15 07:51] LABS: Alanine Aminotransferase 33 IU/L (<50); Albumin 2.8 g/dL (3.5-5.0); Albumin Globulin Ratio 0.7 (1.0-2.8); Alkaline Phosphatase 85 U/L (38-126); Aspartate Aminotransferase 42 IU/L (17-59); BUN Creatinine Ratio 19.8 (6-22); Bilirubin Total 0.4 mg/dL (0.2-1.3); Blood Urea Nitrogen 34 mg/dL (9-20); Calcium 8.1 mg/dL (8.4-10.2); Carbon Dioxide 25 mmol/L (22-32); Chloride 106 mmol/L (98-107); Estimated Glomerular Filt Rate 39.4 mL/min (>60); Globulin 4.1 g/dL (1.7-4.1); Glucose 243 mg/dL (80-110); HEMOLYSIS < 15 (0-50); Magnesium 2.3 mg/dL (1.6-2.3); Potassium 5.2 mmol/L (3.4-5.1); Sodium 135 mmol/L (137-145); Total Protein 6.9 g/dL (6.3-8.2)
[2020-02-15 08:02] LABS: Troponin I 0.071 ng/mL (0.01-0.034)
[2020-02-15] MEDS: INSULIN ASPART 100 UNIT/ML INSULN PEN SUBCUT ×3 (09:07→17:00)
[2020-02-15] MEDS: PANTOPRAZOLE 40 MG VIAL IV (09:07)
[2020-02-15] MEDS: DOCUSATE 100 MG CAPSULE PO (09:08)
[2020-02-15] MEDS: HYDROCODONE/ACET 5/325 TABLET 1.5 TAB PO ×2 (09:10→17:04)
[2020-02-15 09:42] LABS: Cholesterol 124 mg/dL (140-199); HDL Cholesterol 19 mg/dL (40-60); LDL Cholesterol Calculated 76 mg/dL (<100); Triglycerides 145 mg/dL (35-150)
--- NOTE | 2020-02-15 11:03 | DI.ECHO.S_ITS ---
Echocardiogram Report + + :Name: BYRON GREGG Study Date: 02/15/2020 Height: 71 in : :Hospital Weight: 304 lb: : Gender: Male BSA: 2.5 m2 : :: 1950 Age: 69 yrs BP: 96/65 mmHg: :Reason For Study: CHF, AVR : :Ordering Physician: : :OMAR GILLESPIE Performed By: Falguni Lo : :Referring: KEVIN STEPHENS : + + Interpretation Summary There is mild concentric left ventricular hypertrophy. The ejection fraction is estimated to be 60-65%. There is a pacemaker lead in the right ventricle. The right atrium is borderline dilated. There is a bioprosthetic aortic valve. The peak aortic velocity is 3.5 m/sec. The aortic valve mean gradient is 29 mmHg. The velocity across the left ventricular outflow tract has increased as has the mean gradient. Overall the leaflets appear to show adequate mobility. Recommend repeat echo in 6 months Procedure: A two-dimensional transthoracic echocardiogram with color flow and Doppler was performed. The study quality was technically adequate. Comparison is made with the echocardiogram of 10/26/2018. The patient has a paced rhythm. Left Ventricle: The left ventricle is normal in size. There is mild concentric left ventricular hypertrophy. The ejection fraction is estimated to be 60-65%. There are no obvious focal wall motion abnormalities noted but poor endocardial definition reduces the sensitivity for the detection of such. Diastolic function could not be accurately assessed due to paced rhythm. Right Ventricle: The right ventricle is not well visualized. The right ventricle is grossly normal size. There is a pacemaker lead in the right ventricle. The right ventricular systolic function is normal. Atria: The left atrium is mildly dilated. The right atrium is borderline dilated. There is a catheter/pacemaker lead seen in the right atrium. There is no Doppler evidence for an interatrial shunt. Mitral Valve: The mitral valve is normal in structure and function. There is trace mitral regurgitation. Aortic Valve: There is a bioprosthetic aortic valve. The peak aortic velocity is 3.5 m/sec. The aortic valve mean gradient is 29 mmHg. The velocity across the left ventricular outflow tract has increased as has the mean gradient. Overall the leaflets appear to show adequate mobility. Recommend repeat echo in 6 months. No aortic regurgitation is present. Tricuspid Valve: The tricuspid valve is not well visualized, but is grossly normal. Pulmonary artery pressures cannot be estimated because of the lack of a measurable TR jet velocity but the IVC suggests a CVP of around 8 mmHg. There is trace tricuspid regurgitation. Pulmonic Valve: The pulmonic valve is not well seen, but is grossly normal. There is mild pulmonic regurgitation. Great Vessels: The aortic root is normal size. The ascending aorta is mildmoderately enlarged. The IVC is dilated (diameter is greater than 2.1 cm) yet it collapses greater than 50% with a sniff. This suggests a right atrial pressure of 8 mm Hg. Pericardium/ Pleura There is no pericardial effusion. There is no pleural effusion. MMode/2D Measurements & Calculations LVIDd: 5.7 cm LVOT diam: 3.1 cm LVIDs: 4.2 cm asc Aorta Diam: 4.4 cm FS: 26.9 % Ao Arch Diam (Prox Trans): 3.9 cm EPSS: 2.2 cm IVSd: 1.3 cm LVPWd: 1.5 cm LV allen. diameter/BSA (cm/m^2): 2.3 LV sys. diameter/BSA (cm/m^2): 1.7 LA A2 area: 32.2 cm2 RA long axis: 5.8 cm LA A4 area: 19.4 cm2 RA area: 23.8 cm2 LA length (vol): 5.6 cm RA vol: 83.0 ml LA vol: 95.0 ml RA : 32.9 ml/m2 LA vol index: 37.7 ml/m2 IVC diam: 2.3 cm TAPSE: 1.8 cm Doppler Measurements & Calculations Ao V2 max: 348.9 cm/sec LVOT Max Tuan: 89.0 cm/sec Ao V2 mean: 243.9 cm/sec LV V1 max P.2 mmHg Ao max P.8 mmHg LV V1 VTI: 22.0 cm Ao mean P.9 mmHg LEONARDO(I,D): 1.9 cm2 Ao V2 VTI: 87.0 cm LEONARDO(V,D): 1.9 cm2 sev ratio: 0.25 LEONARDO indexed to BSA (cm^2/m^2): 0.76 MV E max tuan: 85.5 cm/sec PA V2 max: 82.8 cm/sec MV A max tuan: 106.5 cm/sec PA V2 mean: 52.6 cm/sec MV E/A: 0.80 PA mean P.4 mmHg Med Peak E' Tuan: 6.4 cm/sec PA pr(Accel): 31.0 mmHg E/E' med: 13.3 Lat Peak E' Tuan: 7.1 cm/sec E/E' lat: 12.0 E/e' average: 12.6 MV dec time: 0.34 sec SV(LVOT): 166.4 ml Reading Physician:01:18 PM
--- NOTE | 2020-02-15 11:37 | CM.DANOTE ---
DCP: Case received, EMR reviewed and met with patient. Introduced self and role. Was able to meet with patient to obtain some information regarding his baseline activity status prior to hospitalization. DCP assessment completed with information currently available. Patient is a 69 year old male who admitted early this morning to the care of the hospitalist team. PCP: Dr. Mcclain at [facility]. Payer: confirmed: Medicare/[facility]. Patient came to the hospital via ambulance secondary to having fever, shortness of breath, as well as hypotension. According to notes, indicated that patient was not eating, and spending more time sleeping. Patient diagnosed with acute kidney injury/sepsis, as well as CHF. Patient has cardiac history including aortic valve replacement. He is on oxygen now, but not at his baseline. Discussed during team rounds that patient is also being evaluated for endocarditis. Met with patient in his room. He was sitting up in bed, currently on oxygen. He resides in [facility], and goes to the [facility] for his care. He resides with his spouse, Lakshmi, who also works as a caregiver. Patient indicated that at his baseline, he uses a cane at home. He also mentioned that he does drive occasionally. P: DCP to continue to follow. Placed P.T/O.T. orders after consulting with Dr. Salinas during team rounds. Patient should be able to go home when he is medically stable. Nunu Olivier RN/Sales Department Clerk
--- NOTE | 2020-02-15 12:40 | PT.IIE ---
Current Diagnoses Sepsis, unspecified organism (02/15/20) Surgical History (Last Reviewed 02/15/20 @ 04:39 by FLORENCIO Lundberg) Aortic valve replaced (Acute) History of knee replacement (Acute) Status cardiac pacemaker (Chronic) Medical History (Last Updated 02/15/20 @ 05:06 by FLORENCIO Lundberg) Anticoagulated on warfarin (Chronic) CAD (coronary artery disease) (Chronic) Diabetes type 2, uncontrolled (Acute) Essential hypertension (Chronic) Morbid obesity with BMI of 40.0-44.9, adult (Chronic) Physical Therapy Inpatient Evaluation/Re-Eval M1 PT/OT-IP Prior Functional Status Start: 02/15/20 11:27 Freq: NEEDED Status: Active Protocol: Document 02/15/20 12:35 AW (Rec: 02/15/20 13:37 AW [id number]) Medical Review Prior Functional Status Medical History Reviewed Yes Communication WNL. Pt is an effective verbal communicator. Mobility and Gait Pt uses a tripod/hurrycane for household mobility and short community distances. If he can get a motorized cart at the grocery store, he will use it, but he is able to manage store distances with the support of a regular grocery cart if needed. Activities of Daily Living and IADL's Indpendent with all self-care. Pt drives sometimes. Prior Functional Level (Other details) Pt has a hurrycane and a bed with adjustable HOB. Social History Household Members spouse,family Living Arrangements House Number of Floors (Floors) One Floor Number of Stairs To Enter/Railing? Ramped entry at front of house . Home Environment High Toilet,Tub/Shower,Ramp Home Equipment Four Wheel Walker,Shower Seat without Backrest,Grab Bars In Shower Employment Status Retired Additional Social History Comment Pt lives with his , Arlene. Pat is MOHEGAN but uses a phone sarbjit to transcribe conversation which is helpful during this evaluation. 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 Pt's grandsons also live in the house. Someone is nearly always with the pt. M2 PT-IP Current Condition Start: 02/15/20 11:27 Freq: NEEDED Status: Active Protocol: Document 09/08/20 12:35 AW (Rec: 02/15/20 13:37 AW [id number]) Physical Therapy Current Condition Current Condition Evaluation Date 02/15/20 Treatment Diagnosis sepsis, TEENA, difficulty in walking Onset Date 02/13/20 M3 PT-IP Subjective Start: 02/15/20 11:27 Freq: NEEDED Status: Active Protocol: Document 02/15/20 12:35 AW (Rec: 02/15/20 13:37 AW [id number]) Subjective Physical Therapy Visit Type Type Initial Evaluation Visit Start Time 12:09 Visit Stop Time 12:33 Total Visit Minutes 24 Number of CLAY MODELER Visits 0 Physical Therapy Visit Comments Patient Comments Pt is willing to participate with PT Patient Goals To return home with family support. Therapy Pain Assessment Pain When Pain Assessed During Mobility Pain Present Pain Present Pain Reported Location back Scale Used not quantified Pain Management Techniques Distraction,Re-positioning M4 PT-IP Mobility and Gait Start: 02/15/20 11:27 Freq: NEEDED Status: Active Protocol: Document 02/15/20 12:35 AW (Rec: 02/15/20 13:37 AW [id number]) PT-Bed Mobility Assessment Supine to Sit Supine to Sit Standby Assistance,Head of Bed Elevated,Bedrails Scooting Scooting to Edge of Bed Standby Assistance PT-Transfer Assessment Sit to and From Stand Sit to and from Stand Minimal Assistance,1 Person Assistance,Use of Upper Extremities Equipment Transfer Assistive Device Gait Belt,Straight Cane Transfers Transfer Destination Chair Transfer Technique Stand Step Pivot Transfer Ability Level of Assist Minimal Assistance,1 Person Assistance,Use of Upper Extremities Comments Mobility Comments Pt was reclined in the bed as PT arrived. TOP CARRIER informed PT that the bed was not adjusting appropriately and would need to be changed out if pt could reach the chair. HOB would not flatten. Pt moved his legs toward the left side of the bed and used the bed rails to pull himself up to sitting EOB . He scooted himself toward EOB SBA and sat for VS assessment. Pt was sweaty but denied lightheadedness. He stood and step pivot transferred to the chair with SPC min A x 1 for line management and for stability. He was positioned on the chair after scooting himself back as far as possible. Pt was left with RN attending. Gait Assessment Gait Gait Assistance Required: Minimum Assistance,1 Person Assist Distance (Feet) 3 Assistive Devices Assistive Device Gait Belt,Straight Cane Gait Deviations General Gait Pattern Antalgic,Decreased Stride Length,Decreased Feet Clearance,Flexed Trunk,Wide Based Gait Factors Limiting Gait Function Factors Limiting Gait Function Decreased Activity Tolerance, Decreased Sensation,Decreased Strength,Pain,Poor Balance, Poor Safety Awareness Comments Gait Comments Transfer only. See mobility comments. Asked pt's to bring pt's tripod cane when she returns. If unavailable, will trial quad cane. Stair Climbing Assessment Comments Stair Climbing Comments Not assessed. Pt has ramped entry. PT-Balance Assessment Sitting Balance and Reactions Static Sitting Balance Ability Good Dynamic Sitting Balance Ability Good Standing Balance and Reactions Static Standing Balance Ability Fair Dynamic Standing Balance Ability Fair Device Used SPC Balance Tests Single Limb Standing 1 sec BLE M5 PT-IP Objective Assessments Start: 02/15/20 11:27 Freq: NEEDED Status: Active Protocol: Document 02/15/20 12:35 AW (Rec: 02/15/20 13:37 AW [id number]) Orientation Orientation/Cognition Level of Alertness Alert Orientation Name,Day of Week,Place, Situation Language Function Ability No Deficits Noted Safety Awareness Decreased Safety Awareness Memory Description No Deficits Noted Gross Range of Motion Upper Extremity ROM Assessment Within Functional Limits Lower Extremity ROM Assessment Bilaterally Impaired Impairments Soft tissue limitations due to habitus. Strength Lower Extremity Strength Assessment Bilaterally Impaired Hip 3+/5 Knee 4/5 Coordination Assessment Gross Coordination Gross Coordination WNL Sensation Assessment Sensation Gross Sensation Right LE Impaired,Left LE Impaired Light Touch Impaired Proprioception (Position) Impaired Muscle Tone Muscle Tone WNL Yes M6 PT-IP Treatment Start: 02/15/20 11:27 Freq: NEEDED Status: Active Protocol: Document 02/15/20 12:35 AW (Rec: 02/15/20 13:37 AW [id number]) Physical Therapy Treatment Education Education Provided Precautions,Safety Other Treatments Other Treatment Performed Provided education on role of PT, plan of care, and rationale for HH PT at discharge. M7 PT-IP Assessment and Plan Start: 02/15/20 11:27 Freq: NEEDED Status: Active Protocol: Document 02/15/20 12:35 AW (Rec: 02/15/20 13:37 AW [id number]) PT Summary Assessment and Plan Potential Rehabilitation Potential Good Status of Condition at Evaluation Evolving Summary Impairments Pain,ROM,Strength,Balance, Sensation,Bed Mobility, Transfers,Gait,Activity Tolerance Assessment Summary Cory is a 69 yo man seen for PT evaluation with admitting diagnosis of sepsis. At baseline, pt is modified independent for household and short distance community ambulation with use of tripod cane. On evaluation, he required min assist of one for transfers and increased time/ use of bed features for bed mobility. PT anticipates this pt will progress back toward baseline as his medical condition improves. If so, he would be safe to discharge home with home health services to further improve functional mobility and to reduce risk of immobility and falls. Goals Bed Mobility Goal Independent Transfer Goal Independent,Cane Gait Goal Independent,Cane Gait Distance 50 Days to Meet Goals 5 Frequency of Treatment Frequency Of Treatment Once a Day Treatment Plan Physical Therapy Treatment Plan Bed Mobility Training,Transfer Training,Gait Training, Therapeutic Exercise,Balance Retraining,Discharge Planning, Hot or Cold Pack,Neuromuscular Re-ed Other Recommendations and Next Treatment reassess bed mobility without Focus bed rails; transfers; gait with quad cane (or own hurry cane if available) Recommendations To Nursing Amount of Assist Needed 1 Person Assist Discharge Recommendations PT Discharge Recommendations Home with Assistance,Home Health Transportation Needs at Discharge Private Vehicle
--- NOTE | 2020-02-15 13:02 | DIET.PN ---
Addendum entered by Cynthia Alvarez 02/15/20 13:38: upon return to pt room c gout handout, pt reports eating many [place] meals recently including: shrimp, crab, wild game, and veggies of choice are high purine vegetables. Pt to discuss c PCP on managing gout while participating in [place] customs. [facility] RDs are happy to consult on OP basis. Original Note: Dietary Progress Note Assessment: 69y M admitted for severe hypotension, barely speaking, febrile at 103 with an elevated respiratory rate referred to nutrition for elevated A1c of 7.5. Pt was followed by [place] [facility] for DM management 2-3y ago but had good control when checking BG that no meds were prescribed. Pts PCP concerned with keeping INR WNL and pt has been unable to walk for a few weeks secondary to new dx Gout. Pt reports drinking 8oz oates juice daily to manage gout. HT: 180.3cm WT: 138kg BMI: 42.4 Labs: A1c 7.5, Cr 1.72 H, eGFR 39.4 L, CRP 22.2 Nutrition Diagnosis: altered nutrition related laboratory values r/t undesirable food choices and acute infection aeb pt was on oral prednisone for a week recently, pt drinks juice to manage gout, lab values A1c 7.5, CRP 22.2, pt reports gout flare and endorses high intake meat gravy. Interventions: 1. Discussed pt checking in c [place] [facility] to watch BGs as A1c is elevated. Provided DM education c handouts. Encouraged pt to drink no more than 4oz juice per day. Encouraged pt to follow [facility] diet low in purines which will support all current health conditions. 2. Per pt request, provided handout on MNT for gout, avoiding some fish and meat gravies, avoiding etoh. Diet Order: [facility]
[2020-02-15 14:43] LABS: Acinetobacter baumannii Not Detected (Not Detect); Candida albicans Not Detected (Not Detect); Candida glabrata Not Detected (Not Detect); Candida krusei Not Detected (Not Detect); Candida parapsilosis Not Detected (Not Detect); Candida tropicalis Not Detected (Not Detect); E. coli Not Detected (Not Detect); Enterobacter cloacae complex Not Detected (Not Detect); Enterobacteriaceae species Not Detected (Not Detect); Enterococcus species Not Detected (Not Detect); Haemophilus influenzae Not Detected (Not Detect); Listeria monocytogenes Not Detected (Not Detect); Neisseria meningitidis Not Detected (Not Detect); Proteus species Not Detected (Not Detect); Pseudomonas aeruginosa Not Detected (Not Detect); Serratia marcescens Not Detected (Not Detect); Staphylococcus species Not Detected (Not Detect); Streptococcus agalactiae (Gr B Not Detected (Not Detect); Streptococcus pneumonia Not Detected (Not Detect); Streptococcus pyogenes (Gr A) Not Detected (Not Detect); Streptococcus species Detected (Not Detect)
--- NOTE | 2020-02-15 15:35 | CM.DPC ---
DCP Cont: Spoke to Dr. Salinas about possible home health, but he most likely will be transferring patient to a higher level hospital due to his lab results. P: DCP continue to follow. He may be transferred this pm to higher level hospital. Nunu Olivier RN/Track Sweeper
--- NOTE | 2020-02-15 16:32 | P.DS_ITS ---
History of Present Illness History of Present Illness Date Patient Seen: 02/15/20 Time Patient Seen: 16:32 Chief complaint: Fever/ shortness of breath/ low BP Narrative: As per FLORENCIO Lundberg: Vipin Lockhart is a 69-year-old [place] former smoker with acardiac history including arotic valve replacement X 2 surgery, pacemaker as well as COPD, morbid obesity and hypertension presents to the ED with an upwards of 10 days of fever, weakness, shortness of breath and cough. Per his , in the room stated he was not eating and was sleeping all the time. He is more awake now and stated he his bones hurt. He told the ED provider that he had not been urinating at all and his said he was disoriented. He denies any headache, runny nose or sore throat. He denies any chest pain. He has had no change in bowel habits such as constipation or diarrhea and denies any dysuria, frequency or urgency. He has been very weak and not doing much for least the past few days per the . states he has been taking his medications and has had no dietary change other than decreased appetite the past few days. Two weeks ago, they went to a family birthday event in [place] and the states they all wore masks and no one she was aware of, had COVID-19. 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 He states he takes warfarin, but skipped his dose last night. Neither his or he of them knows his dose. Per the external meds in this chart, he takes warfarin 6 mg daily. This was confirmed with the and patient later in my visit. The patient arrived in the ED with severe hypotension, barely speaking, febrile at 103 with an elevated respiratory rate. He was put on O2 nasal cannula, and given a total of 3 liters of LR boluses. Chest CTA was negative for a PE, with a finding of a dilated ascending aorta of 4.[address] of the abdomen pelvis negative for bowel obstruction or diverticulitis, but reported on an indeterminant hypodense area in the spleen could represent an acute infarct. EKG was abnormal indicating an atrial first degree block, though patient is paced. A multitude of his labs were grossly abnormal with a white count of 14.8 with a left shift and lymphopenia, anemic at 11.8/35.3, his INR is therapeutic at 2.8, he has an TEENA with an intial creatinine of 2.2 which improved to 1.98 (last normal in 2018) with fluid boluses and a GFR of 33.5, glucose of 171, lactate 1.8, calcium 8.2, normal ferritin at 388, LDH elevated at 976m, elevated tr oponin of 0.063 improved to 0.053 likely due to demand ischemia associated with the TEENA, a proBNP of 2890, albumin low at 3.1, probably reflecting his poor nutritional status. U/A was negative for a UTI, he was tested twice for COVID- 19 and both results were negative. Discharge Providers Provider Date of admission: 02/15/20 02:56 Discharge Date: 02/15/20 Primary care physician: Gretchen Mcclain MD Consults: 02/15/20 04:59 Consult to Dietitian, Adult Urgent Comment: Reason For Exam: New dx of Diabetes type 2 02/15/20 10:27 Consult to Occupational Therapy Evaluate & Treat Comment: Physician Instructions: Evaluate and treat Consult to Physical Therapy Evaluate & Treat Comment: Physician Instructions: Evaluate and Treat Discharge provider: Merritt Salinas DO Summary Hospital Course Discharge Diagnosis: 1. Sepsis, acute, present on admission 2. Streptococcus bacteremia, acute, present on admission 3. History of aortic valve replacement x2, endocarditis with now bioprosthetic valve. 4. Toxic metabolic encephalopathy, improved, acute, present on admission. 5. Elevated troponin, acute, present on admission 6. type 2 diabetes, chronic, well controlled, present on admission. 7. Hypertension, chronic 8. HLD, chronic 9. BPH, chronic. 10. Supratherapeutic INR, acute present on admission. 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 Upon arrival to the emergency room had a fever of 103.3. Shortly after admission, his blood cultures were noted to be positive for a strep species, with sensitivities currently pending. All 4 bottles were positive and g stain showed 4+ Gram-positive cocci. Given his initial presentation he was treated as a possible pneumonia and given ceftriaxone and azithromycin. His CT abdomen and pelvis revealed a possible acute infarct in his spleen, but no other abnormalities and CTA of his chest done for an elevated D-dimer of 5240 was negative for PE and did not show any active pulmonary pathologies. He had a TTE the next morning which showed a normal ejection fraction and no obvious evidence of endocarditis and this result is noted below. UA was also further unremarkable for infection. Respiratory p calvin and COVID-19 testing were negative, COVID-19 testing repeated and was negative a 2nd time. Given his prior history of endocarditis, and now strep bacteremia, without any other obvious source there is concern for another episode of endocarditis. Given that his prior valve replacement was done in [place] will transfer to [facility] for further evaluation and PENNIE. Initial leukocytosis of 14.8 improved slightly to 12.4 after initial therapies including fluids and antibiotics. With regards to his other active medical issues, patient had TEENA with a creatinine of 2.2 on admission, this has improved to 1.7 to this morning with fluids. His A1c was controlled with A1c of 7.5. His INR was elevated to 3.4 this morning and Coumadin will be held. Patient initially had a troponin of 0.063 which down trended to 0.053. A 3rd troponin was checked which did increase to 0.071. He has no complaints at this time and denies chest pain. His EKG does not show any evidence of ischemic changes. Consider repeating troponin upon arrival to accepting facility or possibly in the morning to ensure that it is downtrending. His blood pressure medications and diuretics were held given initial presentation. TTE interpretation: There is mild concentric left ventricular hypertrophy. The ejection fraction is estimated to be 60-65%. There is a pacemaker lead in the right ventricle. The right atrium is borderline dilated. There is a bioprosthetic aortic valve. The peak aortic velocity is 3.5 m/sec. The aortic valve mean gradient is 29 mmHg. The velocity across the left ventricular outflow tract has increased as has the mean gradient. Overall the leaflets appear to show adequate mobility. Time Spent with Patient Time spent: Greater than 30 minutes Exam Vital Signs (past 8 hours): - 02/15/20 09:00 02/15/20 09:30 02/15/20 09:31 Temperature Pulse Rate 72 67 68 Respiratory Rate Blood Pressure 104/63 96/60 Pulse Oximetry 98 96 97 02/15/20 09:55 02/15/20 10:00 02/15/20 11:00 Temperature Pulse Rate 68 67 65 Respiratory Rate 11 L 27 H 30 H Blood Pressure 98/64 94/65 Pulse Oximetry 96 94 95 02/15/20 12:00 02/15/20 13:00 02/15/20 13:46 Temperature 97.7 F Pulse Rate 66 79 87 Respiratory Rate 80 H 19 Blood Pressure 101/71 Pulse Oximetry 95 95 98 02/15/20 15:31 Temperature 95.0 F L Pulse Rate 67 Respiratory Rate 25 H Blood Pressure 95/66 Pulse Oximetry Oxygen Delivery Method Nasal Cannula Oxygen Flow Rate 3 Narrative Exam Narrative: Gen: Alert, oriented, morbidly obese 69 y.o. [place], lethargic. HEENT: normocephalic, atraumatic, conjunctiva clear, sclera non-icteric, oral mucosa pink and moist Neck: supple, full ROM, no JVD, trachea is midline Resp: Lungs CTA b/l. No wheezes, rhonchi, rales. CV: RRR, systolic murmur 2-3/6. no rubs or gallops. Abd: obese, non-tender Skin: no lesions or rashes, dry and intact, some bruising on his legs bilaterally, no edema Neuro: Lethargic, but alert and oriented X 4 w/no focal deficits. Speech clear and coherent. Extremities: moves all 4 extremities, normally is ambulatory and apparently moved well when transferring to a medical bed, negative Giancarlo?s sign Psyche: normal mood and affect. Objective Labs Result Diagrams: 02/15/20 07:31 02/15/20 07:31 Labs: Laboratory Results - last 24 hr 02/14/20 02/14/20 02/14/20 23:20 23:30 23:30 WBC RBC Hgb Hct MCV MCH MCHC RDW Plt Count Neut % (Auto) Lymph % (Auto) Nash % (Auto) Eos % (Auto) Baso % (Auto) Neut # (Auto) Lymph # (Auto) Nash # (Auto) Eos # (Auto) Baso # (Auto) PT INR D-Dimer > 5250 H ABG pH ABG pCO2 ABG pO2 ABG HCO3 ABG Total CO2 ABG O2 Saturation ABG Base Excess FiO2 Sodium Potassium Chloride Carbon Dioxide BUN Creatinine Estimated GFR BUN/Creatinine Ratio Glucose Hemoglobin A1c Lactate Calcium Magnesium Ferritin Total Bilirubin AST ALT Alkaline Phosphatase Lactate Dehydrogenase Total Creatine Kinase CK-MB (CK-2) CK-MB (CK-2) Rel Index Troponin I C-Reactive Protein NT-Pro-B Natriuret Pep Total Protein Albumin Globulin Albumin/Globulin Ratio Triglycerides Cholesterol LDL Cholesterol, Calc HDL Cholesterol Procalcitonin 0.23 Urine Color Urine Appearance Urine pH Ur Specific [place] Urine Protein Urine Glucose (UA) Urine Ketones Urine Occult Blood Urine Nitrate Urine Bilirubin Urine Urobilinogen Ur Leukocyte Esterase Urine RBC Urine WBC Ur Squamous Epith Cells Amorphous Sediment Urine Bacteria Hyaline Casts Granular Casts Ur Culture Indicated? Nasal Screen MRSA (PCR) U Opiates 300ng/mL cut Ur Oxycodone Screen Urine Methadone Screen Ur Barbiturates Screen U Tricyclic Antidepress Ur Phencyclidine Scrn Ur Amphetamines Screen U Methamphetamines Scrn Ur MDMA Scrn (Ecstasy) U Benzodiazepines Scrn Urine Cocaine Screen U Marijuana (THC) Screen A. baumannii (PCR) Not detected Chlamy pneumoniae PCR Adenovirus (PCR) B.parapertussis DNA PCR Edwina albicans (PCR) Not detected C. glabrata (PCR) Not detected C. krusei (PCR) Not detected C. parapsilosis (PCR) Not detected C. tropicalis (PCR) Not detected Coronavirus OC43 (PCR) Coronavirus HKU1 (PCR) Coronavirus 229E (PCR) COVID-19 PCR Negative Coronavirus NL63 (PCR) Enterobacteriac sp PCR Not detected E. cloacae complex PCR Not detected Enterococcus sp PCR Not detected E. coli (PCR) Not detected H. influenzae (PCR) Not detected Human Metapneumovir PCR Influenza Type A (PCR) Influenza Type B (PCR) Klebsiella oxytoca PCR Not detected Klebsiella pneumoniae Not detected List. monocytogenes PCR Not detected M. pneumoniae (PCR) N. meningitidis (PCR) Not detected Parainfluenza 1 (PCR) Parainfluenza 2 (PCR) Parainfluenza 3 (PCR) Parainfluenza 4 (PCR) Proteus species (PCR) Not detected RSV (PCR) Entero/Rhino (PCR) Serratia marcescens PCR Not detected Staphylococcus sp PCR Not detected Staph aureus (PCR) Not detected mecA-Methicil Res Gene Not Reportable Streptococcus sp PCR Detected H Group A Strep (PCR) Not detected Strep agalactiae (PCR) Not detected Strep pneumoniae (PCR) Not detected P. aeruginosa (PCR) Not detected Jeniffer/B-Vanco Res Genes Not Reportable KPC-Carbap Res Gene PCR Not Reportable 02/14/20 02/14/20 02/14/20 23:30 23:30 23:30 WBC 14.8 H RBC 4.26 L Hgb 11.8 L Hct 35.3 L MCV 82.9 MCH 27.7 MCHC 33.5 RDW 16.2 H Plt Count 184 Neut % (Auto) 88.0 H Lymph % (Auto) 6.5 L Nash % (Auto) 4.5 Eos % (Auto) 0.4 L Baso % (Auto) 0.6 Neut # (Auto) 93713 H Lymph # (Auto) 1000 L Nash # (Auto) 700 Eos # (Auto) 100 Baso # (Auto) 100 PT INR D-Dimer ABG pH ABG pCO2 ABG pO2 ABG HCO3 ABG Total CO2 ABG O2 Saturation ABG Base Excess FiO2 Sodium 135 L Potassium 4.9 Chloride 105 Carbon Dioxide 24 BUN 42 H Creatinine 2.20 H Estimated GFR 29.7 L BUN/Creatinine Ratio 19.1 Glucose 171 H Hemoglobin A1c Lactate 1.8 Calcium 8.2 L Magnesium Ferritin 388 Total Bilirubin 0.5 AST 54 ALT 39 Alkaline Phosphatase 103 Lactate Dehydrogenase 976 H Total Creatine Kinase 107 CK-MB (CK-2) 0.65 CK-MB (CK-2) Rel Index 0.6 L Troponin I 0.063 H C-Reactive Protein 22.2 H NT-Pro-B Natriuret Pep 2890 H Total Protein 7.6 Albumin 3.1 L Globulin 4.5 H Albumin/Globulin Ratio 0.7 L Triglycerides Cholesterol LDL Cholesterol, Calc HDL Cholesterol Procalcitonin Urine Color Urine Appearance Urine pH Ur Specific [place] Urine Protein Urine Glucose (UA) Urine Ketones Urine Occult Blood Urine Nitrate Urine Bilirubin Urine Urobilinogen Ur Leukocyte Esterase Urine RBC Urine WBC Ur Squamous Epith Cells Amorphous Sediment Urine Bacteria Hyaline Casts Granular Casts Ur Culture Indicated? Nasal Screen MRSA (PCR) U Opiates 300ng/mL cut Ur Oxycodone Screen Urine Methadone Screen Ur Barbiturates Screen U Tricyclic Antidepress Ur Phencyclidine Scrn Ur Amphetamines Screen U Methamphetamines Scrn Ur MDMA Scrn (Ecstasy) U Benzodiazepines Scrn Urine Cocaine Screen U Marijuana (THC) Screen A. baumannii (PCR) Chlamy pneumoniae PCR Adenovirus (PCR) B.parapertussis DNA PCR Edwina albicans (PCR) C. glabrata (PCR) C. krusei (PCR) C. parapsilosis (PCR) C. tropicalis (PCR) Coronavirus OC43 (PCR) Coronavirus HKU1 (PCR) Coronavirus 229E (PCR) COVID-19 PCR Coronavirus NL63 (PCR) Enterobacteriac sp PCR E. cloacae complex PCR Enterococcus sp PCR E. coli (PCR) H. influenzae (PCR) Human Metapneumovir PCR Influenza Type A (PCR) Influenza Type B (PCR) Klebsiella oxytoca PCR Klebsiella pneumoniae List. monocytogenes PCR M. pneumoniae (PCR) N. meningitidis (PCR) Parainfluenza 1 (PCR) Parainfluenza 2 (PCR) Parainfluenza 3 (PCR) Parainfluenza 4 (PCR) Proteus species (PCR) RSV (PCR) Entero/Rhino (PCR) Serratia marcescens PCR Staphylococcus sp PCR Staph aureus (PCR) mecA-Methicil Res Gene Streptococcus sp PCR Group A Strep (PCR) Strep agalactiae (PCR) Strep pneumoniae (PCR) P. aeruginosa (PCR) Jeniffer/B-Vanco Res Genes KPC-Carbap Res Gene PCR 02/14/20 02/14/20 02/14/20 23:30 23:30 23:40 WBC RBC Hgb Hct MCV MCH MCHC RDW Plt Count Neut % (Auto) Lymph % (Auto) Nash % (Auto) Eos % (Auto) Baso % (Auto) Neut # (Auto) Lymph # (Auto) Nash # (Auto) Eos # (Auto) Baso # (Auto) PT 31.4 H INR 2.8 H D-Dimer ABG pH 7.46 H ABG pCO2 34.2 L ABG pO2 86 ABG HCO3 24 ABG Total CO2 25 ABG O2 Saturation 97 ABG Base Excess 0.0 FiO2 0.34 Sodium Potassium Chloride Carbon Dioxide BUN Creatinine Estimated GFR BUN/Creatinine Ratio Glucose Hemoglobin A1c 7.5 H Lactate Calcium Magnesium Ferritin Total Bilirubin AST ALT Alkaline Phosphatase Lactate Dehydrogenase Total Creatine Kinase CK-MB (CK-2) CK-MB (CK-2) Rel Index Troponin I C-Reactive Protein NT-Pro-B Natriuret Pep Total Protein Albumin Globulin Albumin/Globulin Ratio Triglycerides Cholesterol LDL Cholesterol, Calc HDL Cholesterol Procalcitonin Urine Color Urine Appearance Urine pH Ur Specific [place] Urine Protein Urine Glucose (UA) Urine Ketones Urine Occult Blood Urine Nitrate Urine Bilirubin Urine Urobilinogen Ur Leukocyte Esterase Urine RBC Urine WBC Ur Squamous Epith Cells Amorphous Sediment Urine Bacteria Hyaline Casts Granular Casts Ur Culture Indicated? Nasal Screen MRSA (PCR) U Opiates 300ng/mL cut Ur Oxycodone Screen Urine Methadone Screen Ur Barbiturates Screen U Tricyclic Antidepress Ur Phencyclidine Scrn Ur Amphetamines Screen U Methamphetamines Scrn Ur MDMA Scrn (Ecstasy) U Benzodiazepines Scrn Urine Cocaine Screen U Marijuana (THC) Screen A. baumannii (PCR) Chlamy pneumoniae PCR Adenovirus (PCR) B.parapertussis DNA PCR Edwina albicans (PCR) C. glabrata (PCR) C. krusei (PCR) C. parapsilosis (PCR) C. tropicalis (PCR) Coronavirus OC43 (PCR) Coronavirus HKU1 (PCR) Coronavirus 229E (PCR) COVID-19 PCR Coronavirus NL63 (PCR) Enterobacteriac sp PCR E. cloacae complex PCR Enterococcus sp PCR E. coli (PCR) H. influenzae (PCR) Human Metapneumovir PCR Influenza Type A (PCR) Influenza Type B (PCR) Klebsiella oxytoca PCR Klebsiella pneumoniae List. monocytogenes PCR M. pneumoniae (PCR) N. meningitidis (PCR) Parainfluenza 1 (PCR) Parainfluenza 2 (PCR) Parainfluenza 3 (PCR) Parainfluenza 4 (PCR) Proteus species (PCR) RSV (PCR) Entero/Rhino (PCR) Serratia marcescens PCR Staphylococcus sp PCR Staph aureus (PCR) mecA-Methicil Res Gene Streptococcus sp PCR Group A Strep (PCR) Strep agalactiae (PCR) Strep pneumoniae (PCR) P. aeruginosa (PCR) Jeniffer/B-Vanco Res Genes KPC-Carbap Res Gene PCR 02/15/20 02/15/20 02/15/20 00:40 00:40 00:50 WBC RBC Hgb Hct MCV MCH MCHC RDW Plt Count Neut % (Auto) Lymph % (Auto) Nash % (Auto) Eos % (Auto) Baso % (Auto) Neut # (Auto) Lymph # (Auto) Nash # (Auto) Eos # (Auto) Baso # (Auto) PT INR D-Dimer ABG pH ABG pCO2 ABG pO2 ABG HCO3 ABG Total CO2 ABG O2 Saturation ABG Base Excess FiO2 Sodium Potassium Chloride Carbon Dioxide BUN Creatinine Estimated GFR BUN/Creatinine Ratio Glucose Hemoglobin A1c Lactate Calcium Magnesium Ferritin Total Bilirubin AST ALT Alkaline Phosphatase Lactate Dehydrogenase Total Creatine Kinase CK-MB (CK-2) CK-MB (CK-2) Rel Index Troponin I C-Reactive Protein NT-Pro-B Natriuret Pep Total Protein Albumin Globulin Albumin/Globulin Ratio Triglycerides Cholesterol LDL Cholesterol, Calc HDL Cholesterol Procalcitonin Urine Color Yellow Urine Appearance Clear Urine pH 5.0 Ur Specific [place] 1.015 Urine Protein 1+ H Urine Glucose (UA) Negative Urine Ketones Negative Urine Occult Blood 1+ H Urine Nitrate Negative Urine Bilirubin Negative Urine Urobilinogen 0.2 Ur Leukocyte Esterase Negative Urine RBC 1-5/hpf Urine WBC 0-1/hpf Ur Squamous Epith Cells 0-1 /hpf Amorphous Sediment 1+ Urine Bacteria Occasional (0-1) Hyaline Casts 5-10/lpf Granular Casts 1-5/lpf Ur Culture Indicated? Cult not indicated Nasal Screen MRSA (PCR) U Opiates 300ng/mL cut Ur Oxycodone Screen Urine Methadone Screen Ur Barbiturates Screen U Tricyclic Antidepress Ur Phencyclidine Scrn Ur Amphetamines Screen U Methamphetamines Scrn Ur MDMA Scrn (Ecstasy) U Benzodiazepines Scrn Urine Cocaine Screen U Marijuana (THC) Screen A. baumannii (PCR) Chlamy pneumoniae PCR Not detected Adenovirus (PCR) Not detected B.parapertussis DNA PCR Not detected Edwina albicans (PCR) C. glabrata (PCR) C. krusei (PCR) C. parapsilosis (PCR) C. tropicalis (PCR) Coronavirus OC43 (PCR) Not detected Coronavirus HKU1 (PCR) Not detected Coronavirus 229E (PCR) Not detected COVID-19 PCR Negative Coronavirus NL63 (PCR) Not detected Enterobacteriac sp PCR E. cloacae complex PCR Enterococcus sp PCR E. coli (PCR) H. influenzae (PCR) Human Metapneumovir PCR Not detected Influenza Type A (PCR) Not detected Influenza Type B (PCR) Not detected Klebsiella oxytoca PCR Klebsiella pneumoniae List. monocytogenes PCR M. pneumoniae (PCR) Not detected N. meningitidis (PCR) Parainfluenza 1 (PCR) Not detected Parainfluenza 2 (PCR) Not detected Parainfluenza 3 (PCR) Not detected Parainfluenza 4 (PCR) Not detected Proteus species (PCR) RSV (PCR) Not detected Entero/Rhino (PCR) Not detected Serratia marcescens PCR Staphylococcus sp PCR Staph aureus (PCR) mecA-Methicil Res Gene Streptococcus sp PCR Group A Strep (PCR) Strep agalactiae (PCR) Strep pneumoniae (PCR) P. aeruginosa (PCR) Jeniffer/B-Vanco Res Genes KPC-Carbap Res Gene PCR 02/15/20 02/15/20 02/15/20 00:50 02:04 04:50 WBC RBC Hgb Hct MCV MCH MCHC RDW Plt Count Neut % (Auto) Lymph % (Auto) Nash % (Auto) Eos % (Auto) Baso % (Auto) Neut # (Auto) Lymph # (Auto) Nash # (Auto) Eos # (Auto) Baso # (Auto) PT INR D-Dimer ABG pH ABG pCO2 ABG pO2 ABG HCO3 ABG Total CO2 ABG O2 Saturation ABG Base Excess FiO2 Sodium Potassium Chloride Carbon Dioxide BUN Creatinine 1.98 H Estimated GFR 33.5 L BUN/Creatinine Ratio Glucose Hemoglobin A1c Lactate Calcium Magnesium Ferritin Total Bilirubin AST ALT Alkaline Phosphatase Lactate Dehydrogenase Total Creatine Kinase CK-MB (CK-2) CK-MB (CK-2) Rel Index Troponin I 0.053 H C-Reactive Protein NT-Pro-B Natriuret Pep Total Protein Albumin Globulin Albumin/Globulin Ratio Triglycerides Cholesterol LDL Cholesterol, Calc HDL Cholesterol Procalcitonin Urine Color Urine Appearance Urine pH Ur Specific [place] Urine Protein Urine Glucose (UA) Urine Ketones Urine Occult Blood Urine Nitrate Urine Bilirubin Urine Urobilinogen Ur Leukocyte Esterase Urine RBC Urine WBC Ur Squamous Epith Cells Amorphous Sediment Urine Bacteria Hyaline Casts Granular Casts Ur Culture Indicated? Nasal Screen MRSA (PCR) Negative for mrsa U Opiates 300ng/mL cut Positive H Ur Oxycodone Screen Negative Urine Methadone Screen Negative Ur Barbiturates Screen Negative U Tricyclic Antidepress Negative Ur Phencyclidine Scrn Negative Ur Amphetamines Screen Negative U Methamphetamines Scrn Negative Ur MDMA Scrn (Ecstasy) Negative U Benzodiazepines Scrn Negative Urine Cocaine Screen Negative U Marijuana (THC) Screen Negative A. baumannii (PCR) Chlamy pneumoniae PCR Adenovirus (PCR) B.parapertussis DNA PCR Edwina albicans (PCR) C. glabrata (PCR) C. krusei (PCR) C. parapsilosis (PCR) C. tropicalis (PCR) Coronavirus OC43 (PCR) Coronavirus HKU1 (PCR) Coronavirus 229E (PCR) COVID-19 PCR Coronavirus NL63 (PCR) Enterobacteriac sp PCR E. cloacae complex PCR Enterococcus sp PCR E. coli (PCR) H. influenzae (PCR) Human Metapneumovir PCR Influenza Type A (PCR) Influenza Type B (PCR) Klebsiella oxytoca PCR Klebsiella pneumoniae List. monocytogenes PCR M. pneumoniae (PCR) N. meningitidis (PCR) Parainfluenza 1 (PCR) Parainfluenza 2 (PCR) Parainfluenza 3 (PCR) Parainfluenza 4 (PCR) Proteus species (PCR) RSV (PCR) Entero/Rhino (PCR) Serratia marcescens PCR Staphylococcus sp PCR Staph aureus (PCR) mecA-Methicil Res Gene Streptococcus sp PCR Group A Strep (PCR) Strep agalactiae (PCR) Strep pneumoniae (PCR) P. aeruginosa (PCR) Jeniffer/B-Vanco Res Genes KPC-Carbap Res Gene PCR 02/15/20 02/15/20 02/15/20 07:31 07:31 07:31 WBC 12.4 H RBC 4.13 L Hgb 11.3 L Hct 34.5 L MCV 83.4 MCH 27.3 MCHC 32.8 RDW 16.2 H Plt Count 164 Neut % (Auto) 93.2 H Lymph % (Auto) 4.8 L Nash % (Auto) 1.8 L Eos % (Auto) 0.0 L Baso % (Auto) 0.2 Neut # (Auto) 66663 H Lymph # (Auto) 600 L Nash # (Auto) 200 Eos # (Auto) 0 Baso # (Auto) 0 PT 39.1 H D INR 3.4 H D-Dimer ABG pH ABG pCO2 ABG pO2 ABG HCO3 ABG Total CO2 ABG O2 Saturation ABG Base Excess FiO2 Sodium 135 L Potassium 5.2 H Chloride 106 Carbon Dioxide 25 BUN 34 H Creatinine 1.72 H Estimated GFR 39.4 L BUN/Creatinine Ratio 19.8 Glucose 243 H Hemoglobin A1c Lactate Calcium 8.1 L Magnesium 2.3 Ferritin Total Bilirubin 0.4 AST 42 ALT 33 Alkaline Phosphatase 85 Lactate Dehydrogenase Total Creatine Kinase CK-MB (CK-2) CK-MB (CK-2) Rel Index Troponin I C-Reactive Protein NT-Pro-B Natriuret Pep Total Protein 6.9 Albumin 2.8 L Globulin 4.1 Albumin/Globulin Ratio 0.7 L Triglycerides Cholesterol LDL Cholesterol, Calc HDL Cholesterol Procalcitonin Urine Color Urine Appearance Urine pH Ur Specific [place] Urine Protein Urine Glucose (UA) Urine Ketones Urine Occult Blood Urine Nitrate Urine Bilirubin Urine Urobilinogen Ur Leukocyte Esterase Urine RBC Urine WBC Ur Squamous Epith Cells Amorphous Sediment Urine Bacteria Hyaline Casts Granular Casts Ur Culture Indicated? Nasal Screen MRSA (PCR) U Opiates 300ng/mL cut Ur Oxycodone Screen Urine Methadone Screen Ur Barbiturates Screen U Tricyclic Antidepress Ur Phencyclidine Scrn Ur Amphetamines Screen U Methamphetamines Scrn Ur MDMA Scrn (Ecstasy) U Benzodiazepines Scrn Urine Cocaine Screen U Marijuana (THC) Screen A. baumannii (PCR) Chlamy pneumoniae PCR Adenovirus (PCR) B.parapertussis DNA PCR Edwina albicans (PCR) C. glabrata (PCR) C. krusei (PCR) C. parapsilosis (PCR) C. tropicalis (PCR) Coronavirus OC43 (PCR) Coronavirus HKU1 (PCR) Coronavirus 229E (PCR) COVID-19 PCR Coronavirus NL63 (PCR) Enterobacteriac sp PCR E. cloacae complex PCR Enterococcus sp PCR E. coli (PCR) H. influenzae (PCR) Human Metapneumovir PCR Influenza Type A (PCR) Influenza Type B (PCR) Klebsiella oxytoca PCR Klebsiella pneumoniae List. monocytogenes PCR M. pneumoniae (PCR) N. meningitidis (PCR) Parainfluenza 1 (PCR) Parainfluenza 2 (PCR) Parainfluenza 3 (PCR) Parainfluenza 4 (PCR) Proteus species (PCR) RSV (PCR) Entero/Rhino (PCR) Serratia marcescens PCR Staphylococcus sp PCR Staph aureus (PCR) mecA-Methicil Res Gene Streptococcus sp PCR Group A Strep (PCR) Strep agalactiae (PCR) Strep pneumoniae (PCR) P. aeruginosa (PCR) Jeniffer/B-Vanco Res Genes KPC-Carbap Res Gene PCR 02/15/20 02/15/20 07:31 07:31 WBC RBC Hgb Hct MCV MCH MCHC RDW Plt Count Neut % (Auto) Lymph % (Auto) Nash % (Auto) Eos % (Auto) Baso % (Auto) Neut # (Auto) Lymph # (Auto) Nash # (Auto) Eos # (Auto) Baso # (Auto) PT INR D-Dimer ABG pH ABG pCO2 ABG pO2 ABG HCO3 ABG Total CO2 ABG O2 Saturation ABG Base Excess FiO2 Sodium Potassium Chloride Carbon Dioxide BUN Creatinine Estimated GFR BUN/Creatinine Ratio Glucose Hemoglobin A1c Lactate Calcium Magnesium Ferritin Total Bilirubin AST ALT Alkaline Phosphatase Lactate Dehydrogenase Total Creatine Kinase CK-MB (CK-2) CK-MB (CK-2) Rel Index Troponin I 0.071 H C-Reactive Protein NT-Pro-B Natriuret Pep Total Protein Albumin Globulin Albumin/Globulin Ratio Triglycerides 145 Cholesterol 124 L LDL Cholesterol, Calc 76 HDL Cholesterol 19 L Procalcitonin Urine Color Urine Appearance Urine pH Ur Specific [place] Urine Protein Urine Glucose (UA) Urine Ketones Urine Occult Blood Urine Nitrate Urine Bilirubin Urine Urobilinogen Ur Leukocyte Esterase Urine RBC Urine WBC Ur Squamous Epith Cells Amorphous Sediment Urine Bacteria Hyaline Casts Granular Casts Ur Culture Indicated? Nasal Screen MRSA (PCR) U Opiates 300ng/mL cut Ur Oxycodone Screen Urine Methadone Screen Ur Barbiturates Screen U Tricyclic Antidepress Ur Phencyclidine Scrn Ur Amphetamines Screen U Methamphetamines Scrn Ur MDMA Scrn (Ecstasy) U Benzodiazepines Scrn Urine Cocaine Screen U Marijuana (THC) Screen A. baumannii (PCR) Chlamy pneumoniae PCR Adenovirus (PCR) B.parapertussis DNA PCR Edwina albicans (PCR) C. glabrata (PCR) C. krusei (PCR) C. parapsilosis (PCR) C. tropicalis (PCR) Coronavirus OC43 (PCR) Coronavirus HKU1 (PCR) Coronavirus 229E (PCR) COVID-19 PCR Coronavirus NL63 (PCR) Enterobacteriac sp PCR E. cloacae complex PCR Enterococcus sp PCR E. coli (PCR) H. influenzae (PCR) Human Metapneumovir PCR Influenza Type A (PCR) Influenza Type B (PCR) Klebsiella oxytoca PCR Klebsiella pneumoniae List. monocytogenes PCR M. pneumoniae (PCR) N. meningitidis (PCR) Parainfluenza 1 (PCR) Parainfluenza 2 (PCR) Parainfluenza 3 (PCR) Parainfluenza 4 (PCR) Proteus species (PCR) RSV (PCR) Entero/Rhino (PCR) Serratia marcescens PCR Staphylococcus sp PCR Staph aureus (PCR) mecA-Methicil Res Gene Streptococcus sp PCR Group A Strep (PCR) Strep agalactiae (PCR) Strep pneumoniae (PCR) P. aeruginosa (PCR) Jeniffer/B-Vanco Res Genes KPC-Carbap Res Gene PCR Discharge Plan Discharge Plan Disposition: [facility] Discharge orders & Medications Follow up/Referrals: Gretchen Mcclain MD [Primary Care Provider] - Discharge Health Status Health Concerns: Strep bacteremia Discharge Data Primary Care Provider: Gretchen Mcclain
--- NOTE | 2020-02-15 17:42 | PC.NURSE ---
Pt Transfer note: Pt alert and oriented x4, breath sounds coarse with some exp wheezes, on rm air sats are 96%. Heart tones audible, regular with murmur, pulses strong, BP 126/70, paced rhythm on telemetry. IV of NS in progress to R hand IV @ 175ml/hr. koch to bag draining clear urine. Hydrocodone 1 1/2 tabs (7.5mg) given for c/o back pain. Report Called to Charge Nurse Paul KELLY at [facility] in [facility].
[2020-02-16 07:00] LABS: SARS CoV19 IgG Negative (Negative)
[2020-02-16 16:29] LABS: SARS-CoV19- IgM Negative (Negative)
== END 2020-02-15 18:08 | disposition short-term general hospital (02) | DRG 871 ==
LOC: ED 02-15 02:36 → AC 02-15 02:56 → ICU 02-15 11:28
PROVIDERS: Admitting Provider Nurse Practitioner Family; Emergency Provider Emergency Medicine; PCP Family Medicine; Referring Provider Emergency Medicine; Visit Provider Nurse Practitioner Family
DX: A40.9 Streptococcal sepsis, unspecified (principal); G93.41 Metabolic encephalopathy; I33.0 Acute and subacute infective endocarditis; N17.9 Acute kidney failure, unspecified; Z68.41 Body mass index [BMI] 40.0-44.9, adult; I95.9 Hypotension, unspecified; R65.20 Severe sepsis without septic shock; E66.01 Morbid (severe) obesity due to excess calories; R79.89 Other specified abnormal findings of blood chemistry; Z87.891 Personal history of nicotine dependence; Z95.2 Presence of prosthetic heart valve; Z95.0 Presence of cardiac pacemaker; J44.9 Chronic obstructive pulmonary disease, unspecified; I10 Essential (primary) hypertension; Z79.01 Long term (current) use of anticoagulants; I25.10 Atherosclerotic heart disease of native coronary artery without angina pectoris; E78.5 Hyperlipidemia, unspecified; N40.0 Benign prostatic hyperplasia without lower urinary tract symptoms; E11.9 Type 2 diabetes mellitus without complications; R79.1 Abnormal coagulation profile; Z11.59 Encounter for screening for other viral diseases
CPT/HCPCS: 36415; 36600; 51701; 71045; 71275; 74177; 76770; 80053; 80061; 80305; 81001; 82550; 82553; 82565; 82728; 82805; 82962; 83036; 83605; 83615; 83735; 83880; 84145; 84484; 85025; 85379; 85610; 86140; 86769; 87040; 87150; 87186; 87205; 87633; 87635; 87797; 93005; 94640; 96361; 96365; 96367; 96375; 97162; 99285; C8929; C9113; J0696; J1200; J1956; J2930; Q9957; Q9967

== ENCOUNTER → 2020-03-02 18:10 | Outpatient (ROUT) | payer MEDICARE, OTHER, SELFPAY ==
[2020-02-15 04:32] VITALS: BMI 42.4
[2020-03-02 18:34] LABS: Add Manual Diff / Slide Review NO; Basophils Absolute Auto 0 /uL (0-100); Basophils Percent Auto 0.3 % (0-2); Eosinophils Absolute Auto 0 /uL (0-450); Hematocrit 34.1 % (41-53); Hemoglobin 11.1 g/dL (13.5-17.5); Lymphocytes Absolute Auto 800 /uL (1100-4500); Lymphocytes Percent Auto 5.7 % (25-40); Mean Corpuscular HGB Conc 32.6 % (30-36); Mean Corpuscular Volume 82.8 fL (80-100); Monocytes Absolute Auto 500 /uL (0-900); Neutrophils Absolute Auto 12200 /uL (1500-7000); Platelet Count 196 X10^3/uL (150-400); Red Blood Cell Count 4.12 X10^6/uL (4.5-5.9); Red Cell Distribution Width 17.7 % (11.6-14.8); White Blood Cell Count 13.6 X10^3/uL (4.5-11.0)
[2020-03-02 18:42] LABS: Alanine Aminotransferase 39 IU/L (<50); Albumin Globulin Ratio 0.8 (1.0-2.8); Alkaline Phosphatase 83 U/L (38-126); Aspartate Aminotransferase 50 IU/L (17-59); BUN Creatinine Ratio 18.4 (6-22); Bilirubin Total 0.4 mg/dL (0.2-1.3); Blood Urea Nitrogen 19 mg/dL (9-20); Calcium 8.3 mg/dL (8.4-10.2); Carbon Dioxide 26 mmol/L (22-32); Chloride 106 mmol/L (98-107); Estimated Glomerular Filt Rate > 60.0 mL/min (>60); Globulin 3.8 g/dL (1.7-4.1); Glucose 165 mg/dL (80-110); HEMOLYSIS < 15 (0-50); Potassium 4.4 mmol/L (3.4-5.1); Sodium 140 mmol/L (137-145); Total Protein 6.8 g/dL (6.3-8.2)
== END ==
PROVIDERS: Family Medicine Sports Medicine; PCP Family Medicine; Referring Provider Internal Medicine; Visit Provider Internal Medicine
DX: A40.9 Streptococcal sepsis, unspecified (principal)
CPT/HCPCS: 80053; 85025